=== PATIENT | female | born 1995 | race Caucasian/White ===

== ENCOUNTER 2020-10-29 16:55 | Emergency (ER) | payer BC, MEDICAID, SELFPAY ==
[2020-10-29 17:01] VITALS: BP 114/77; PULSE 75; RESP 16; TEMP 36.3; O2SAT 99
--- NOTE | 2020-10-29 17:25 | W.ED.GENAD ---
Discharge Plan Disposition Patient Disposition: HOME Condition: Stable Discharge Details Clinical Impression: UTI (urinary tract infection) during Primary Care Provider: Unknown,Unknown ED Provider: Aubrey Kruger Home Meds and New Rx's Prescriptions: New cephalexin 500 mg capsule 500 mg PO BID Qty: 10 RF: 0 Discharge Instructions Instructions: Urinary Tract Infection in Women (ED) Additional Instructions: Keflex as directed. Plenty of fluids to avoid dehydration. [id number] Tylenol as directed for discomfort. Please watch for new or worsening symptoms and return to the ER for any concerns. I personally spoke with our OB team, Dr. Giraldo, who is aware of your ER visit and happy to follow you as an outpatient. 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 Took 500 mg of Tylenol with out relief of her symptoms. She is considering transferring her INSTANT POTATO PROCESS[employer] care down to our facility. Clinically she appears well, nontoxic, vital signs are unremarkable, no evidence of fever or hypertension. Abdomen is nontender, consistent with approximately 33 weeks , heart tones 142. No fever, vomiting, CVA tenderness. Will obtain IV access, CBC, CMP, urinalysis, give 1 g p.o. Tylenol and 1 L normal saline. Will reassess and I will also reach out to our INST[employer] P[employer]ESS[employer] team given patient would like to transfer care down to our facility. Laboratory values reveal mild nonspecific leukocytosis of 13.22 which can be completely normal in . Hemoglobin 11.0 hematocrit 32.2 platelet count 240. Potassium 3.4 anion gap 12.5, creatinine 0.6 with GFR greater than 60. Glucose 114. Bilirubin 0.5. AST 10 and 12 alk phosphatase 123, initial urinalysis appears contaminated but does have leukoesterase and white cells, will obtain a second urine sample. Repeat urine sample revealed small leuk esterase, 10-20 white cells, appears to be a better catch. Culture pending Patient appears well, nontoxic. Reports some relief with the Tylenol but headache has not resolved completely. No vomiting while under my care. I personally reached out to our OB team, Dr. Giraldo, who is aware of the patient's ER visit, I will initiate Keflex therapy, and she will be happy to follow her as an outpatient in the next couple of days. I will place her on the OB list as well to expedite outpatient care. Repeat urinalysis, my conversation with Dr. Giraldo, and disposition I will discuss with patient and significant other. Will give initial dose of Keflex here in the ER. Patient and significant other have no additional questions or concerns. Standard discharge and return precautions given This documentation was generated using Diveboardation system, please disregard any oddities of phrase or misspellings. Medical Records Medical records narrative: No records to review Lab Data Lab results reviewed: Yes I reviewed the patient's lab results. Labs: 10/29/20 18:35 Urine - Reflex from Ua Urine Culture - Pending Laboratory Tests Range/Units 10/29/20 10/29/20 10/29/20 17:30 17:47 17:47 WBC (4.4-10.8) 10^3/uL 13.22 H RBC (3.93-5.22) 10^6/uL 3.77 L Hgb (11.2-15.7) g/dL 11.0 L Hct (36.0-46.0) % 32.2 L MCV (80-95) fL 85.4 MCH (27.0-33.0) pg 29.2 MCHC (32.0-36.0) % 34.2 RDW (11.7-14.6) % 12.5 Plt Count (130-400) 10^3/uL 240 MPV (8.0-11.0) fL 10.1 Immature Gran % 0.7 Neutrophils % 79.5 Lymphocytes % 13.5 Monocytes % 5.0 Eosinophils % 1.1 Basophils % 0.2 Nucleated RBC % % 0 Absolute Neutrophils (1.2-6.7) 10^3/uL 10.51 H Absolute Lymphocytes (1.2-3.4) 10^3/uL 1.78 Absolute Monocytes (0.1-0.8) 10^3/uL 0.66 Absolute Eosinophils (0.0-0.7) 10^3/uL 0.15 Absolute Basophils (0.0-0.2) 10^3/uL 0.03 Sodium (136-145) mmol/L 140 Potassium (3.5-5.1) mmol/L 3.4 L Chloride (98-107) mmol/L 105 Carbon Dioxide (21.0-32.0) mmol/L 22.5 Anion Gap (3-11) mmol/L 12.5 H BUN (7-18) mg/dL 4 L Creatinine (0.55-1.02) mg/dL 0.6 Estimated GFR/1.73 m2 (mL/min/1.73m2) >= 60.00 Glucose (74-106) mg/dL 114 H Calcium (8.5-10.1) mg/dL 8.7 Total Bilirubin (0.2-1.0) mg/dL 0.5 AST (15-37) U/L 10 L ALT (14-59) U/L 12 L Alkaline Phosphatase (46-116) U/L 123 H Total Protein (6.4-8.2) g/dL 7.0 Albumin (3.4-5.0) g/dL 3.0 L Urine Color (Yellow) Yellow Urine Clarity (Clear) Sl Cloudy Urine pH (5-8) 7.0 Ur Specific [place] (1.005-1.025) 1.020 Urine Protein (Negative) mg/dL Negative Urine Ketones (Negative) mg/dL Negative Urine Blood (Negative) Negative Urine Nitrite (Negative) Negative Urine Bilirubin (Negative) Negative Urine Urobilinogen (Up TO 0.2) EU/dL 0.2 Ur Leukocyte Esterase (Negative) Small H Urine RBC (0-2) HPF Negative Urine WBC (0-5) HPF 10-20 H Ur Epithelial Cells (Negative) HPF Many Urine Crystals (Negative) HPF Negative Urine Bacteria (Negative) HPF Many Urine Casts (Negative) LPF 20-50 Fine Granular Urine Mucus (Negative) Negative Urine Other (Negative) Many Renal Ur Culture Indicated? No/Sq. Contamination Urine Glucose (Negative) mg/dL Negative Range/Units 10/29/20 18:35 WBC (4.4-10.8) 10^3/uL RBC (3.93-5.22) 10^6/uL Hgb (11.2-15.7) g/dL Hct (36.0-46.0) % MCV (80-95) fL MCH (27.0-33.0) pg MCHC (32.0-36.0) % RDW (11.7-14.6) % Plt Count (130-400) 10^3/uL MPV (8.0-11.0) fL Immature Gran % Neutrophils % Lymphocytes % Monocytes % Eosinophils % Basophils % Nucleated RBC % % Absolute Neutrophils (1.2-6.7) 10^3/uL Absolute Lymphocytes (1.2-3.4) 10^3/uL Absolute Monocytes (0.1-0.8) 10^3/uL Absolute Eosinophils (0.0-0.7) 10^3/uL Absolute Basophils (0.0-0.2) 10^3/uL Sodium (136-145) mmol/L Potassium (3.5-5.1) mmol/L Chloride (98-107) mmol/L Carbon Dioxide (21.0-32.0) mmol/L Anion Gap (3-11) mmol/L BUN (7-18) mg/dL Creatinine (0.55-1.02) mg/dL Estimated GFR/1.73 m2 (mL/min/1.73m2) Glucose (74-106) mg/dL Calcium (8.5-10.1) mg/dL Total Bilirubin (0.2-1.0) mg/dL AST (15-37) U/L ALT (14-59) U/L Alkaline Phosphatase (46-116) U/L Total Protein (6.4-8.2) g/dL Albumin (3.4-5.0) g/dL Urine Color (Yellow) Yellow Urine Clarity (Clear) Sl Cloudy Urine pH (5-8) 7.0 Ur Specific [place] (1.005-1.025) 1.020 Urine Protein (Negative) mg/dL Negative Urine Ketones (Negative) mg/dL Negative Urine Blood (Negative) Negative Urine Nitrite (Negative) Negative Urine Bilirubin (Negative) Negative Urine Urobilinogen (Up TO 0.2) EU/dL 0.2 Ur Leukocyte Esterase (Negative) Small H Urine RBC (0-2) HPF 0-2 Urine WBC (0-5) HPF 10-20 H Ur Epithelial Cells (Negative) HPF Few Urine Crystals (Negative) HPF Negative Urine Bacteria (Negative) HPF Many Urine Casts (Negative) LPF 10-20 Fine Granular Urine Mucus (Negative) Negative Urine Other (Negative) Few Renal Ur Culture Indicated? Yes Urine Glucose (Negative) mg/dL Negative HPI General Mode of arrival: ambulatory. Date/Time Provider Initiated Documentation: 10/29/20 16:55. Limitations to Documentation: no limitations. Information obtained by: patient and family. HPI Narrative: This is a 25-year-old female, denies significant past medical history, G1, P0, approximately 33 weeks, presenting for evaluation of dental moderate global headache, mild nausea, that began 3 days ago. Patient has taken 500 mg of Tylenol with little relief of her symptoms. She is able to take fluids without difficulty, has decreased appetite, but forcing herself to eat cereal. Patient states that she is followed at [facility] but her provider is on vacation, she contacted their office, did not get a call back from the provider hydro station operator, is debating changing her [employer] care to our facility, contact [facility] who recommended coming to the ER for further evaluation. Patient states that she has had some abdominal cramping throughout her but this cramping is diffuse, worse across the upper aspect, and has what she describes as a stretching sensation from her umbilicus to her suprapubic region. She did have an outpatient evaluation last week which was normal, scheduled for an outpatient ultrasound tomorrow at [facility]. Patient is vaccinated against Covid. She denies recent travel or sick contacts. She states that she has a history of migraines but that this does not feel exactly the same, did come on gradually, and is frustrated because there are no other medications that she can safely take. She denies visual changes, neck pain, chest pain, shortness of breath, vomiting, dysuria, hematuria, diarrhea, skin rash, fluid retention in her extremity lower extremities. She does admit to loose stools over the past couple of weeks but not watery. She denies any fever. She states that she has had a scant vaginal discharge during her entire which is unchanged today. Denies additional discharge or bleeding. Related Data Home Medications Medication Instructions Recorded Confirmed cephalexin 500 mg PO BID #10 cap 10/29/20 Previous Rx's Medication Instructions Recorded cephalexin 500 mg PO BID #10 cap 10/29/20 Allergies Allergy/AdvReac Type Severity Reaction Status Date / Time No Known Allergies Allergy Unverified 10/29/20 17:06 General Stated Complaint: GenMedical WOJCIECH: 3 Review of Systems Constitutional Constitutional: Denies fatigue, Denies fever(s) and Reports headache(s) Eyes Eyes: Denies change in vision ENT Ears, Nose, Mouth, and Throat: Reports otalgia, Reports headache(s) and Denies neck pain Cardiovascular Cardiovascular: Denies chest pain and Denies dyspnea Respiratory Respiratory: Denies cough and Denies dyspnea Gastrointestinal Gastrointestinal: Reports abdominal pain, Reports cramping, Reports loose stools, Reports nausea and Denies vomiting Genitourinary Genitourinary: Denies abnormal vaginal bleeding, Denies hematuria, Denies dysuria and Reports vaginal discharge Musculoskeletal Musculoskeletal: Denies back pain and Denies neck pain Integumentary/Breasts Skin/Breast: Denies rash Neurologic Neurologic: Reports headache(s) Endocrine Endocrine: Denies fatigue [facility] Social History Smoking/Tobacco Use Status: Former Tobacco Use Smoking risk assessment performed?: Yes Alcohol Intake: never Drug use: Never Substance use type: does not use Do you feel safe at home: Yes Do you feel safe in your relationship?: Yes Exam Const General: cooperative, healthy appearing, comfortable and no acute distress Orientation: alert, awake and oriented x3 HENMT Head: normal to inspection, normocephalic and atraumatic Ears: external ears normal, TM's normal bilaterally and EAC's normal General nose exam: external nose normal Face and sinus: normal facial exam Mouth: moist mucous membranes Throat: posterior oropharynx normal Eyes General: appearance normal, both eyes and all related structures Conjunctivae: conjunctivae normal Neck Neck: normal visual inspection, full ROM, no meningeal signs, trachea midline, supple and nontender Resp Effort & Inspection: normal respiratory effort and able to speak in complete sentences Auscultation: clear to auscultation bilaterally Cardio Rate: regular rate Rhythm: regular rhythm GI Palpation: soft and nontender Auscultation: normal bowel sounds Other: Abdominal examination consistent with approximately 33 weeks Back/Spine/Pelvis Back: no CVA tenderness and No back tenderness Skin General skin exam: no rashes or lesions noted Neuro General: patient alert, patient awake, moves all extremities and no focal motor deficits Cognition: normal cognition Speech: speech normal Gait: normal gait Motor: muscle tone normal throughout Sensory Exam: no sensory deficits noted Extrem General: normal to inspection, full ROM, capillary refill normal, no pedal edema and no calf tenderness Psych Appearance: grossly normal Mental Status: mental status grossly normal Course Vital Signs Vital signs: Vital Signs Temperature 36.3 C L 10/29/20 17:01 Pulse 75 10/29/20 17:01 Respiratory Rate 16 10/29/20 17:01 Blood Pressure 114/77 10/29/20 17:01 Pulse Oximetry 99 10/29/20 17:01 Temperature 36.3 C L 10/29/20 17:01 Temperature Source Temporal Artery Scan 10/29/20 17:01 Pulse 75 10/29/20 17:01 Respiratory Rate 16 10/29/20 17:01 Respiratory Effort Non-Labored 10/29/20 17:05 Blood Pressure 114/77 10/29/20 17:01 Blood Pressure Position Sitting 10/29/20 17:01 Pulse Oximetry 99 10/29/20 17:01 Oxygen Delivery Method Room Air 10/29/20 17:01 Oxygen Flow Rate 0 10/29/20 17:01 Pain Level 6 10/29/20 17:01
[2020-10-29 17:34] LABS: Bilirubin Negative (Negative); Blood Negative (Negative); Clarity Sl Cloudy (Clear); Glucose Negative (Negative); Ketones Negative (Negative); Leukocyte Esterase Small (Negative); Nitrite Negative (Negative); Urobilinogen 0.2 EU/dL (Up TO 0.2)
[2020-10-29] MEDS: Normal Saline 1,000 ML 1000 ML IV (17:45)
[2020-10-29 17:53] LABS: Abs Immature Grans 0.09 10^3/uL (0.0-0.06); Absolute Basophil Count 0.03 10^3/uL (0.0-0.2); Absolute Eosinophil Count 0.15 10^3/uL (0.0-0.7); Absolute Lymphocyte Count 1.78 10^3/uL (1.2-3.4); Absolute Monocyte Count 0.66 10^3/uL (0.1-0.8); Absolute Neutrophil Count 10.51 10^3/uL (1.2-6.7); Basophils % 0.2; Eosinophils % 1.1; HCT 32.2 % (36.0-46.0); Immature Grans % 0.7; Lymphocytes % 13.5; MCH 29.2 pg (27.0-33.0); MCHC 34.2 % (32.0-36.0); MCV 85.4 fL (80-95); MPV 10.1 fL (8.0-11.0); Neutrophils % 79.5; Nucleated RBC 0 %; Platelet Count 240 10^3/uL (130-400); RBC 3.77 10^6/uL (3.93-5.22); RDW 12.5 % (11.7-14.6); RDW-SD 38.5 fL; WBC 13.22 10^3/uL (4.4-10.8)
[2020-10-29 17:54] LABS: Bacteria Many HPF (Negative); Crystals Negative HPF (Negative); Epithelial Cells Many HPF (Negative); Mucus Negative (Negative); RBC Negative HPF (0-2)
[2020-10-29] MEDS: Acetaminophen 500 MG TAB 1000 MG PO (17:54)
[2020-10-29 17:55] LABS: C & S Indicated? No/Sq. Contamination
[2020-10-29 18:12] LABS: ALT 12 U/L (14-59); AST 10 U/L (15-37); Alkaline Phosphatase 123 U/L (46-116); Anion Gap 12.5 mmol/L (3-11); BUN 4 mg/dL (7-18); Bilirubin, Total 0.5 mg/dL (0.2-1.0); CO2 22.5 mmol/L (21.0-32.0); CREATININE 0.6 mg/dL (0.55-1.02); Calcium 8.7 mg/dL (8.5-10.1); Chloride 105 mmol/L (98-107); Glucose 114 mg/dL (74-106); Potassium 3.4 mmol/L (3.5-5.1); Sodium 140 mmol/L (136-145)
[2020-10-29 18:53] LABS: Bilirubin Negative (Negative); Blood Negative (Negative); Clarity Sl Cloudy (Clear); Glucose Negative (Negative); Ketones Negative (Negative); Leukocyte Esterase Small (Negative); Nitrite Negative (Negative); Urobilinogen 0.2 EU/dL (Up TO 0.2)
[2020-10-29 19:03] LABS: Epithelial Cells Few HPF (Negative); RBC 0-2 HPF (0-2)
[2020-10-29 19:04] LABS: Bacteria Many HPF (Negative); C & S Indicated? Yes; Crystals Negative HPF (Negative); Mucus Negative (Negative); Other Cells Few Renal (Negative)
[2020-10-29] MEDS: Cephalexin 500 MG CAP PO (19:46)
[2020-10-29 19:50] VITALS: BP 109/61; PULSE 65; RESP 16; TEMP 37.1; O2SAT 99
--- NOTE | 2020-10-29 20:25 | NUR.NOTE ---
referral faxed to [facility] to establish chief strategy officer care and uti. Dr Giraldo aware of patient.Nursing Note:
== END 2020-10-29 19:52 | disposition home or self-care (01) ==
PROVIDERS: Emergency Provider Physician Assistant
DX: O23.43 Unspecified infection of urinary tract in pregnancy, third trimester (principal); B96.89 Other specified bacterial agents as the cause of diseases classified elsewhere; Z3A.32 32 weeks gestation of pregnancy; R51.9 Headache, unspecified
CPT/HCPCS: 36415; 80053; 96360; 96361; 99283; 81003; 81015; 85025; 87086

== ENCOUNTER 2020-11-17 15:44 | Outpatient (REF) | payer BC, MEDICAID, SELFPAY ==
[2020-11-18 22:18] LABS: Campylobacter PCR Negative (Negative); Salmonella PCR Negative (Negative); Shiga Toxin PCR Negative (Negative); Shigella/Enteroinvasive Ecoli Negative (Negative)
== END 2020-11-17 15:45 | disposition home or self-care (01) ==
LOC: LBN 15:44
PROVIDERS: Visit Provider Advanced Practice Midwife
DX: R19.7 Diarrhea, unspecified (principal)
CPT/HCPCS: 87329; 87505; 87177

== ENCOUNTER 2020-11-22 03:42 | Outpatient (CLI) | payer BC, MEDICAID, SELFPAY ==
[2020-11-22 15:19] LABS: HCT 31.3 % (36.0-46.0); HGB 10.3 g/dL (11.2-15.7); MCH 27.6 pg (27.0-33.0); MCHC 32.9 % (32.0-36.0); MCV 83.9 fL (80-95); MPV 10.6 fL (8.0-11.0); Platelet Count 220 10^3/uL (130-400); RBC 3.73 10^6/uL (3.93-5.22); RDW 12.8 % (11.7-14.6); RDW-SD 38.5 fL
[2020-11-22 18:16] LABS: *AMPHETAMINES SCREEN URINE Negative (Negative); *BARBITURATES SCREEN URINE Negative (Negative); *BENZODIAZEPINES SCREEN URINE Negative (Negative); Cannabinoids THC Negative (Negative); Cocaine Screen,Urine Negative (Negative); METHADONE URINE SCREEN Negative (Negative); OPIATES URINE SCREEN Negative (Negative)
[2020-11-22 18:17] LABS: Tricyclic Antidepressants Negative (Negative)
[2020-11-23 10:59] LABS: Varicella IgG Antibody Negative (See Note)
[2020-11-29 13:39] LABS: Buprenorphine Negative ng/mL (Cutoff: 5.0); Norbuprenorphine Negative ng/mL (Cutoff: 2.5)
== END 2020-11-22 03:43 | disposition home or self-care (01) ==
LOC: LBO 03:42
PROVIDERS: Advanced Practice Midwife; Visit Provider Advanced Practice Midwife
DX: Z34.93 Encounter for supervision of normal pregnancy, unspecified, third trimester (principal); Z36.85 Encounter for antenatal screening for Streptococcus B; Z01.84 Encounter for antibody response examination; Z11.59 Encounter for screening for other viral diseases; Z3A.36 36 weeks gestation of pregnancy
CPT/HCPCS: 36415; 80307; 85027; 86787; 86850; 86900; 86901; 87081

== ENCOUNTER 2020-12-15 04:32 | Inpatient (IN) | payer BC, MEDICAID, SELFPAY ==
[2020-12-15] VITALS (61 sets, daily range): BP systolic 90–134; BP diastolic 48–82; PULSE 54–125; RESP 16–20; TEMP 36.5–37.2; O2SAT 79–100; BMI 35.2
--- NOTE | 2020-12-15 04:47 | W.PM.OBHPL1 ---
Date of service: 12/15/20 Time of Service: 04:47 Assessment and Plan Assessment and plan (1) PROM with onset of labor within 24 hours of rupture: Status: Acute Assessment and plan: A: 25 yo G1 @ 39+6 wks, benign AP course, Transferred into midwifery service @ 33 wks SROM clear confirmed, early labor GBS Neg, Varicella non-immune low risk for SD or PPH planning epidural anesthesia P: Admit to BC, T&S, CBC, COVID swab Attended by FOB and her mother Epidural upon request, pitocin augmentation as needed Anticipate Varicella vaccine Qualifiers: PROM gestational age: full term Qualified Code(s): O42.02 - Full-term premature rupture of membranes, onset of labor within 24 hours of rupture (2) 40 weeks gestation of : Status: Acute OB-HPI Labor/Delivery History of Present Illness Reason for Visit: PROM AT TERM Chief Complaint: Uterine Contractions; Suspected Rupture of Membranes , Associated Signs and Symptoms of Suspected ROM: large and repeated gushes of fluids since 0140 this morning, cramping began shortly thereafter. LAVERN Calculator Estimated Delivery Date Method Current WG Current Estimate 12/16/20 Manual 39w 6d from outside records History of Present Expected Delivery Route/Plan - CNM FOB/boyfriend - Chay House (his first child) BB yes to circ Desires epidural in labor Lo's Mom Luanne will be 2nd support in labor and she has been vaccinated. Varicella Non-Immune, offer vaccine GBS negative Specific Issues/Plan 1. Transfer into practice at 33+3 wks from [facility] 2. Anatomy never completed after 3 US due to baby's position, unable to see aortic arch and outflow tract, patient does not want to repeat 3. 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 No Varicella done at last providers office, patient declines doing this testing as she is certain she had chicken pox despite counseling 4a. Varicella Non-Immune by 36 wk blood draw. Advise pt at next visit, offer vaccination 5. Has had COVID vaccine, FOB and her Mother will be support and have had COVID vaccine as well. 6. Diarrhea - stool for ova and parasites ordered, immodium recommended. EDWIGE diet, temporarily discontinue vitamins. 6a. O and P test cancelled due to specimen not being fresh. Neg salmonella camphylobactor and shigella 6b. Symptoms resolved. Assessment: History Reviewed & Current Review of Systems All systems reviewed & are unremarkable except as noted in HPI and below Constitutional Constitutional: Reports system reviewed and no additional complaints, except as documented Cardiovascular Cardiovascular: Reports as per HPI Respiratory Respiratory: Reports as per HPI Gastrointestinal Gastrointestinal: Reports system reviewed and no additional complaints, except as documented Genitourinary Genitourinary: Reports system reviewed and no additional complaints, except as documented and Reports as per HPI Musculoskeletal Musculoskeletal: Reports back pain Integumentary/Breasts Skin/Breast: Reports system reviewed and no additional complaints, except as documented Neurologic Neurologic: Reports system reviewed and no additional complaints, except as documented Psychiatric Psychiatric: Reports system reviewed and no additional complaints, except as documented [facility] Medical History (Updated 12/15/20 @ 04:57 by Radha Quintanilla) 38 weeks gestation of Surgical History H/O wisdom tooth extraction Social History Smoking/Tobacco Use Status: Former Tobacco Use Smoking risk assessment performed?: Yes Alcohol Intake: never Drug use: Never Substance use type: does not use Do you feel safe at home: Yes Do you feel safe in your relationship?: Yes History History 1 Para 0 Hx # Term Pregnancies 0 Multiple births 0 Hx # Pregnancies 0 Ectopic pregnancies 0 AB induced 0 Hx Number of Living Children 0 AB spontaneous 0 Meds Allergies and Home Medications Allergies Allergy/AdvReac Type Severity Reaction Status Date / Time No Known Allergies Allergy Unverified 12/15/20 04:34 Home Medications Medication Instructions Recorded Confirmed Type doxylamine succinate 25 mg tablet 25 mg PO QHS PRN 10/31/20 12/15/20 History vits no.126-ferrous fum 1 tab PO DAILY tab 10/31/20 12/15/20 History 28 mg iron-folic acid 800 mcg tablet ferrous sulfate 325 mg (65 mg 325 mg PO DAILY 11/29/20 12/15/20 History iron) tablet ranitidine HCl 150 mg tablet 150 mg PO DAILY tab 12/06/20 12/15/20 History Exam Physical Exam Vital signs: BP-126/75, P-63 Vital Signs Reviewed: Yes Constitutional Constitutional: mild distress Detailed Labor and Delivery Exam Dilation: 1.5 Effacement (%): 90 station: -2 Position: LOP Cervix position: posterior Consistency: medium VILLA Score(Cervical Ripeness Score): 6 Amniotic Membrane Status: Ruptured Rupture Method: Spontaneous Amniotic Fluid: Clear Pooling: Positive Nitrazine: Positive Ferning: Present Contraction Frequency(min): q3 min Contraction Duration(sec): 60 Contraction Intensity: Mild Fetus A Heart Rate Baseline: 120 Monitor Accelerations: 15 X 15 Monitor Decelerations: None Variability: Moderate (6-25 BPM) Presentation: Cephalic Categories: Category I Est. Weight: 7 lb 11.459 oz Est. Weight: 3500 gms Date of Membrane Rupture: 12/15/20 Time of Membrane Rupture: 01:40 HEENT Exam HEENT Exam: Normal Neck Exam Neck Exam: Normal Chest/Brest/Axilla Exam Chest Exam: Normal Breast Exam Breast Exam: Not Done Respiratory Exam Respiratory Exam: Normal Cardiovascular Exam Cardiovascular Exam: Normal Abdominal Exam Abdominal Exam: Normal (gravid, soft between contractions) Rectal Exam Rectal Exam: Not Done Exam Exam: Normal Extremities Exam Extremities Exam: Normal Back/Spine/Pelvis Exam Back Exam: Normal Pelvis Adequate: Yes Skin Exam Skin Exam: Normal Neurological Exam Neurological Exam: Normal Psychiatric Exam Psychiatric Exam: Normal Results Results Group Beta Strep: Negative Blood Type: O+ Rubella Status: Immune Varicella Immunity: Nonimmune Risk Assessment Risk for Shoulder Dystocia Historical/Initial OB: NEGATIVE FOR: Pelvic Abnormality, Pre- BMI>30, Previous Shoulder Dystocia or Previous Macrosomia Increased Risk?: No Delivery Plan @ 36wks: spont labor, Risk for Pre-Eclampsia Daily Dose ASA Indicated: No Yes, if one or more: NEGATIVE FOR: Hx Pre-E/Gest HTN, Chronic HTN, Multiple Gestation, Pre-gestational DM, Renal Disease, Systemic Lupus or APA Syndrome Yes, if 2 or more: POSITIVE FOR: Nulliparity; NEGATIVE FOR: Age>= 35 yrs, >10yr btwn pregnancies, BMI>30, ethinicty, Mother/Sister w/ Pre-E or Previous IUGR Risk for Post- Hemorrhage Initial: NEGATIVE FOR: Multiple Gestation, Previous PPH, Known Clotting Deficiency, Grand Multiparity or Anticoagulation At Risk?: No Counseled re: Active Management: Yes Risks Reviewed Risks Reviewed Upon Admission: Yes
[2020-12-15 05:11] LABS: Source Nasal/Nares
[2020-12-15 05:35] LABS: HCT 35.6 % (36.0-46.0); HGB 11.7 g/dL (11.2-15.7); MCH 27.7 pg (27.0-33.0); MCHC 32.9 % (32.0-36.0); MCV 84.4 fL (80-95); MPV 10.9 fL (8.0-11.0); Platelet Count 244 10^3/uL (130-400); RBC 4.22 10^6/uL (3.93-5.22); RDW 14.8 % (11.7-14.6); RDW-SD 44.8 fL; WBC 14.57 10^3/uL (4.4-10.8)
[2020-12-15] MEDS: Acetaminophen 500 MG TAB 1000 MG PO (05:45)
[2020-12-15 06:01] LABS: COVID-19 PCR Negative (Negative)
--- NOTE | 2020-12-15 06:22 | NUR.NOTE ---
Nursing Note: returned to room 303 from tub room. Nitrous explained.
[2020-12-15] MEDS: Normal Saline Flush 10 ML SYR IVP (06:53)
[2020-12-15] MEDS: Lactated Ringers 500 ML IV (07:00)
--- NOTE | 2020-12-15 07:02 | W.PM.OBNL1 ---
Date of service: 12/15/20 Time of Service: 07:02 Informed Consent Informed Consent: Regional Anesthesia Pelvic Exam Dilation: 2.5 Effacement (%): 100 station: -1 Vaginal Exam Presentation: Cephalic Contractions Monitor Mode: External Contraction Frequency(min): q2-3 Intensity: Mild/Moderate Fetus A Monitor: External (US) Heart Rate Baseline: 125 Variability: Moderate (6-25 BPM) Categories: Category I Accelerations: 15 X 15 Decelerations: None Amniotic Membrane Status: Ruptured (since 139) Rupture Method: Spontaneous Amniotic Fluid: Clear Assessment and Plan Assessment and plan (1) PROM with onset of labor within 24 hours of rupture: Status: Acute Assessment and plan: A: Early active labor, primipara, Desires epidural anesthesia now P: Pre-anesthesia orders entered [employer] paged IV access initiated and bolus begun Qualifiers: PROM gestational age: full term Qualified Code(s): O42.02 - Full-term premature rupture of membranes, onset of labor within 24 hours of rupture Objective Abnormal lab results 12/15/20 Range/Units 05:27 WBC 14.57 H (4.4-10.8) 10^3/uL Hct 35.6 L (36.0-46.0) % RDW 14.8 H (11.7-14.6) % Temp Pulse Resp BP Pulse Ox 98.4 F 63 16 126/75 100 12/15/20 04:18 12/15/20 04:18 12/15/20 04:18 12/15/20 04:18 12/15/20 04:18 Laboratory Results WBC 14.57 10^3/uL (4.4-10.8) H 12/15/20 05:27 RBC 4.22 10^6/uL (3.93-5.22) 12/15/20 05:27 Hgb 11.7 g/dL (11.2-15.7) 12/15/20 05:27 Hct 35.6 % (36.0-46.0) L 12/15/20 05:27 MCV 84.4 fL (80-95) 12/15/20 05:27 MCH 27.7 pg (27.0-33.0) 12/15/20 05:27 MCHC 32.9 % (32.0-36.0) 12/15/20 05:27 RDW 14.8 % (11.7-14.6) H 12/15/20 05:27 Plt Count 244 10^3/uL (130-400) 12/15/20 05:27 MPV 10.9 fL (8.0-11.0) 12/15/20 05:27 COVID-19 Source Nasal/Nares 12/15/20 05:10 SARS-CoV-2 (PCR) Negative (Negative) 12/15/20 05:10 Patient ABO/Rh O Positive 12/15/20 05:27 Antibody Screen NEGATIVE 12/15/20 05:27 Vital Signs Reviewed: Yes Objective Narrative Objective Narrative: Pt vocalizing with contractions, appears more uncomfortable Normotensive, afebrile Cervical change to 2-3 cm with descent to -1/-2 Subjective Interval history since last seen: Has ambulated, soaked in the tub, tried nitrous but didn't like it, now requesting regional anesthesia. Contractions are more intense, pain is no longer primarily in her back, entire pelvic region has become painful with contractions, also pt reports waves of nausea.
--- NOTE | 2020-12-15 07:26 | W.ANESPRE ---
General Info Date of Service Date Performed: 12/15/20 Height: 5 ft 1.81 in Weight: 86.75 kg Body Mass Index (BMI): 35.2 Meds Allergies and Home Medications Allergies Allergy/AdvReac Type Severity Reaction Status Date / Time No Known Allergies Allergy Unverified 12/15/20 04:34 Home Medication Medication Instructions Recorded doxylamine succinate 25 mg tablet 25 mg PO QHS PRN 10/31/20 vits no.126-ferrous fum 1 tab PO DAILY tab 10/31/20 28 mg iron-folic acid 800 mcg tablet ferrous sulfate 325 mg (65 mg 325 mg PO DAILY 11/29/20 iron) tablet ranitidine HCl 150 mg tablet 150 mg PO DAILY tab 12/06/20 Current Visit Medications: Current Medications Generic Name Dose Route Start Last Admin Trade Name Freq PRN Reason Stop Dose Admin Fentanyl/Ropivacaine 200 ml 12/15/20 07:00 Fentanyl/Ropivacaine 2 Mcg/Ml And 0.1% 200 Ml [place] Cassette EP DIRECTED ROSSANA Sodium Chloride 500 mls @ 0 mls/hr 12/15/20 04:32 Saline 500ml Bag IV PRN PRN As Directed Ringer's Solution 500 mls @ 500 mls/hr 12/15/20 07:00 12/15/20 07:00 IV 12/15/20 07:59 500 mls/hr BOLUS ONE Administration IV Miscellaneous Supplies 1 each 12/15/20 04:45 Iv Access IV DIRECTED ROSSANA Sodium Chloride 0 ml 12/15/20 04:32 12/15/20 06:53 Normal Saline Flush 10 Ml Syr IVP 10 ml PRN PRN Administration PFSH Active Problems Active Problems: Problem Status Onset Code 40 weeks gestation of Z3A.40 PROM with onset of labor within 24 hours of rupture O42.00 Asymptomatic microscopic hematuria R31.21 Susceptible to Varicella (non-immune), currently in third trimester O09.893, Z28.3 Anemia affecting first O99.019 Diarrhea R19.7 Z34.90 UTI (urinary tract infection) during O23.40 Medical History Medical History (Updated 12/15/20 @ 04:57 by Radha Quintanilla) 38 weeks gestation of Surgical History Surgical History H/O wisdom tooth extraction Tobacco Smoking/Tobacco Use Status: Former Tobacco Use Alcohol Alcohol Intake: never Substance Use Substance use: Never Substance use type: does not use Prental History History 1 Para 0 Hx # Term Pregnancies 0 Multiple births 0 Hx # Pregnancies 0 Ectopic pregnancies 0 AB induced 0 Hx Number of Living Children 0 AB spontaneous 0 Vital Signs and Lab Results Vital Signs Most Recent Vital Signs in EMR: Most Recent Vital Signs Temp Pulse Resp BP Pulse Ox 36.9 C 63 16 126/75 100 12/15/20 04:18 12/15/20 04:18 12/15/20 04:18 12/15/20 04:18 12/15/20 04:18 Lab Results Result Diagrams: 12/15/20 05:27 Blood Type / Crossmatch: Patient ABO/Rh O Positive 12/15/20 05:27 12/15/20 Antibody Screen NEGATIVE 12/15/20 05:27 12/15/20 Complete Blood Count: White Blood Count 14.57 10^3/uL (4.4-10.8) H 12/15/20 05:27 12/15/20 Red Blood Count 4.22 10^6/uL (3.93-5.22) 12/15/20 05:27 12/15/20 Hemoglobin 11.7 g/dL (11.2-15.7) 12/15/20 05:27 12/15/20 Hematocrit 35.6 % (36.0-46.0) L 12/15/20 05:27 12/15/20 Platelet Count 244 10^3/uL (130-400) 12/15/20 05:27 12/15/20 Complete Metabolic Panel: No Data to Display Liver Function Panel: No Data to Display Coagulation Panel: No Data to Display Cardiac Panel: No Data to Display Arterial Blood Gas: No Data to Display Venous Blood Gas: No Data to Display Pancreas Panel: No Data to Display Thyroid Panel: No Data to Display Infectious Disease: Coronavirus (COVID-19)(PCR) Negative (Negative) 12/15/20 05:10 12/15/20 Coronavirus 2019 Source Nasal/Nares 12/15/20 05:10 12/15/20 Blood Cultures: No Data to Display Toxicology Panel: Urine Amphetamines Screen Negative (Negative) 11/22/20 16:00 11/22/20 Urine Benzodiazepines Screen Negative (Negative) 11/22/20 16:00 11/22/20 Urine Barbiturates Screen Negative (Negative) 11/22/20 16:00 11/22/20 Urine Cocaine Screen Negative (Negative) 11/22/20 16:00 11/22/20 Urine Methadone Screen Negative (Negative) 11/22/20 16:00 11/22/20 Urine Opiates Screen Negative (Negative) 11/22/20 16:00 11/22/20 Ur Tricyclic Antidepressants Screen Negative (Negative) 11/22/20 16:00 11/22/20 Ur Tetrahydrocannabinol (THC) Scrn Negative (Negative) 11/22/20 16:00 11/22/20 Panel: No Data to Display Anesthesia Assessment and Plan Anesthesia History Personal History: No History of Anesthesia Complications Family History: No Family History of Anesthesia Complications Exercise Tolerance Exercise Tolerance: Metabolic Equivalents>4 Cardiac & Pulmonary Exam Cardiac Exam: Normal S1/S2 Heart Sounds Pulmonary Exam: Clear Bilateral Breath Sounds Airway Exam Known Difficult Airway: No Mallampati Class: 1 Mouth Opening: Normal (> 3cm) Thyromental Distance: Greater than 3 cm Neck Range of Motion: Full ROM Neck Circumference: Normal Teeth Condition: Normal Dentition ASA Classification ASA Score: ASA 2 Emergency Case?: No NPO Status NPO Status: Full Stomach Status Status: Confirmed Anesthesia Plan Resuscitation Status: Full Code Anesthesia Technique: Epidural Anesthesia Airway Planned: Natural Airway Monitors Used: Standard Monitors
[2020-12-15] MEDS: FentaNYL/ROPIvacaine 2 mcg/ml and 0.1% 200 ML CADD Cassette EP (07:50)
--- NOTE | 2020-12-15 08:12 | W.ANESNEU ---
Epidural/Spinal Catheter Date Performed: 12/15/20 Procedure Start: 07:40 Procedure Stop: 07:55 Requesting Provider: Radha Quintanilla Procedure Location: Obstetrics Reason Performed: Labor Epidural Standard Monitors Applied: Blood Pressure, SpO2 and See EMR for corresponding vital signs Patient Position: Sitting Sedation Given (Indicate Dose Given): No Sedation given Patient Mental Status: Awake Sterility: Hand Hygiene, Surgical Cap, Surgical Mask, Sterile Gloves, Sterile Drape/Sheet and Chlorhexidine Procedure Location: L3-L4 Interspace Epidural Needle: Tuohy 18 Gauge Needle Length: 3.5 Inch Needle Approach: Midline Epidural Procedure: Skin Prepped, Sterile Drape Placed, 1% Lidocaine to skin and subcutaneous tissue with 25G needle, Tuohy Needle placed, HARMONY to Saline Used, Epidural Catheter Placed, Negative Heme, Negative CSF Flow and Tuohy Needle Removed Catheter Placed?: Catheter Placed Test Dose (Indicate Dose Given): 3ml 1.5% Lidocaine with 1:200K Epinephrine Given Loss of Resistance Depth (cm): 9 Catheter depth at skin (cm): 16 Dressing: Sorbaview Dressing Placed Epidural Provider Bolus (Indicate Dose Given): Total Ropivacaine 0.1% with Fentanyl 2mcg/ml Given from pump (ml) Dose:: 10mL Additives (Indicate Dose Given ): None Infusion Medication: Medication Infusion Began Medication Infusion: Ropivacaine 0.1% with Fentanyl 2mcg/ml Maintenance Infusion Rate (ml/hour): 10 PCEA Bolus Dose (ml): 5 Block Level: N/A Paresthesia: None Ultrasound: Not Used Number of Attempts (See previous attempts in note section): 1 Procedure Tolerated: No Complications Procedure Outcome: Successful Performed By: Krysta Washburn
[2020-12-15] MEDS: Mylanta Suspension 30 ML CUP PO ×2 (08:54→12:02)
--- NOTE | 2020-12-15 08:56 | W.PM.OBNL1 ---
Date of service: 12/15/20 Time of Service: 08:56 Informed Consent Informed Consent: Augmentation of Labor Contractions Contraction Frequency(min): q5-7 Intensity: Mild/Moderate Fetus A Monitor: External (US) Heart Rate Baseline: 130 Presentation: Cephalic Variability: Moderate (6-25 BPM) Categories: Category I Accelerations: 15 X 15 Decelerations: None Amniotic Membrane Status: Ruptured Assessment and Plan Assessment and plan (1) PROM with onset of labor within 24 hours of rupture: Status: Acute Assessment and plan: A: Effective epidural anesthesia Inadequate contraction pattern P: Pitocin augmentation per protocol Dr. Santamaria consulting Anticipate Qualifiers: PROM gestational age: full term Qualified Code(s): O42.02 - Full-term premature rupture of membranes, onset of labor within 24 hours of rupture Objective Vital Signs Reviewed: Yes Subjective Interval history since last seen: Pt states she is much more comfortable since epidural took effect, resting LLP, drowsy now.
[2020-12-15] MEDS: Ondansetron 4 MG/2 ML VIAL IVP (10:14)
[2020-12-15] MEDS: Lactated Ringers 1,000 ML 125 ML IV (10:16)
[2020-12-15] MEDS: Oxytocin/Normal Saline 30 UNIT/500 ML BAG 2 UNITS IV (10:17)
--- NOTE | 2020-12-15 10:39 | W.PM.OBNL1 ---
Date of service: 12/15/20 Time of Service: 10:39 Informed Consent Informed Consent: Augmentation of Labor Pelvic Exam Dilation: 6 Effacement (%): 100 station: 0 Position: LOT Cervix Position: anterior Consistency: soft Vaginal Exam Presentation: Cephalic Contractions Monitor Mode: External Contraction Frequency(min): q4-7 Intensity: Moderate Fetus A Monitor: External (US) Heart Rate Baseline: 130 Variability: Moderate (6-25 BPM) Categories: Category I Accelerations: 15 X 15 Decelerations: None Amniotic Membrane Status: Ruptured Assessment and Plan Assessment and plan (1) PROM with onset of labor within 24 hours of rupture: Status: Acute Assessment and plan: A: pitocin augmentation, epidural anesthesia category 1 tracing P: Anticipate Qualifiers: PROM gestational age: full term Qualified Code(s): O42.02 - Full-term premature rupture of membranes, onset of labor within 24 hours of rupture Objective Vital Signs Reviewed: Yes Objective Narrative Objective Narrative: Cervical change from 3 to 6 cm since before epidural was placed, Contraction pattern remains irregular, mild to palp Bloody vaginal mucous noted in small amt, bladder palpable Pt assisted to bedside commode and spontaneously voided qs Pitocin augmentation started moments ago and is at 2 mu/min Subjective Interval history since last seen: Epidural somewhat heavier on pt's right side, pt reports pelvic pressure when she has contractions which are infrequent and irregular at this time. Results Abnormal Lab Findings:
[2020-12-15] MEDS: Oxytocin/Normal Saline 30 UNIT/500 ML BAG 167 UNITS IV (13:22)
--- NOTE | 2020-12-15 13:55 | W.OBDELIVERY ---
Date of service: 12/15/20 Time of Service: 13:55 OB Labor/ Delivery Information Baby A Delivery Delivery Method: Spontaneaous Presentation: Cephalic Cephalic Position: Vertex Vertex Position: Left Occipital Anterior Breech Position: N/A Cord Description-Baby A: 3 Vessels, Nuchal Cord (Snug nuchal cord reduced overhead, left nuchal hand) and Reduced Amniotic Fluid: Clear Estimated Blood Loss: 300 Delivery Outcome: Liveborn Transferred: Remains with Mother Note: Category 1 tracing was maintained throughout first stage of labor, Pitocin augmentation at 3 mu/min with improved contraction pattern. At full dilation 2nd stage huddle was completed and excellent maternal efforts resulted in rapid descent to perineum, decel to 90's noted at 1308. Recovery to baseline after 90 seconds with moderate variability but decels to 80-100 recurred over the following 10 minutes as vtx crowned to delivery @ 1321. over intact perineum with maternal position semi-fowlers, snug nuchal cord reduced overhead, left nuchal hand noted, non-vigorous male infant immediately moved to warmer for drying, stim and blowby 02 after cord was clamped then cut by FOB, Apgars of 4 - 7 - 9. Pitocin infusion bolus begun, cord blood collected, Call placenta intact with 3VC, fundus firm below umbilicus, min rubra. Upon inspection, perineum is intact, no vaginal wall lacerations, bilateral superficial labial skidmarks noted, not bleeding, not repaired. Superficial laceration noted on vaginal floor at introitus with slight oozing of blood which was controlled with one stitch of 3.0 Vicryl. At 10 minutes of age, baby was placed in mother's arms for skin to skin with 02 saturation >90%. Peds notified via phone of scores and status. EBL 300 ml, weight 3190 gms. Providers Nurse Market Development Executive: Radha Quintanilla Commercial Loan Underwriter: Krysta Washburn Nurse: Carolyne Sauceda Nurse: Jimenez Griffin Labor/Delivery Information Number of Babies in Womb: 1 Steroids Given: None Reason Steroids Not Administered: N/A Group Beta Strep: Negative Rubella Status: Immune Blood Type: O+ Varicella Immunity: Nonimmune Medication in Delivery: pitocin augment Maternal Complications: None Shoulder Dystocia: No Stages of Labor Onset of Labor Date: 12/15/20 Onset of Labor Time: 01:45 Complete Dilatation Date: 12/15/20 Complete Dilatation Time: 12:53 Labor - Stage 1 Duration: 0 minutes ROM Baby A: 12/15/20 ROM Baby A: 01:40 ROM Total Time- Baby A: [id number] Delivery Date-Baby A: 12/15/20 Infant Delivery Time-Baby A: 13:21 Labor Stage 2 Duration: 28 minutes Placenta Delivery Date-Baby A: 12/15/20 Placenta Delivery Time-Baby A: 13:29 Labor-Stage 3 Duration: 8 minutes Total Length of Labor-Baby A: 11 hours and 36 minutes Placenta Cultured: No Placenta Status: Delivered Baby A Gender: Male Gestational Status: Term (39-41.6 wks) Gestational Age in Weeks/Days: 39 Weeks and 6 Days weight: 7 lb 0.524 oz Weight Comment: 3190 gms Score-1 Minute Interval(Baby A) Heart Rate-1 minute: 100 BPM or Greater Respiratory Effort- 1 minute: No Spontaneous Effort Muscle Tone-1 minute: Limp Reflex Response-1 minute: Minimal Response Color-1 minute: Bluish Hands or Feet Total Score-1 minute: 4 Score-5 Minute Interval(Baby A) Heart Rate- 5 minute: 100 BPM or Greater Respiratory Effort-5 minute: Slow Respiration/Weak Cry Muscle Tone-5 minute: Minimal Flexion/Extension Reflex Response-5 minute: Prompt Response Color-5 minute: Bluish Hands or Feet Total Score- 5 minute: 7 Procedure Procedures: Cord Blood Collection
--- NOTE | 2020-12-15 14:33 | W.ANESPOSTOP ---
Postoperative Evaluation Date, Time and Location Date Performed: 12/15/20 Time Performed: 14:33 Patient Location: Obstetrics Vital Signs Most Recent Imported Vital Signs: Most Recent Vital Signs Temp Pulse Resp BP Pulse Ox 37.0 C 77 20 112/65 100 12/15/20 12:43 12/15/20 14:30 12/15/20 12:43 12/15/20 14:30 12/15/20 13:20 Pain Score Most Recent Pain Score: Most Recent Pain Score Pain Level 4 12/15/20 05:45 Assessment Mental Status: Awake (Alert & Oriented to Patient Baseline) Airway and Respiratory Function: Patent airway with normal (patient baseline) respiratory exam Cardiovascular Function: Hemodynamically Stable Hydration Status: Adequately Hydrated Nausea & Vomiting: No Nausea or Vomiting Pain: Pt. Denies Any Pain Peripheral Nerve Block: Patient did not receive a nerve block Postoperative Comments:: Most Recent pain is 0
[2020-12-15] MEDS: Dibucaine 1% 28 GM TUBE TP (15:47)
[2020-12-15] MEDS: Ibuprofen 600 MG TAB PO (18:40)
[2020-12-15] MEDS: Acetaminophen 325 MG TAB 650 MG PO (18:41)
[2020-12-15] MEDS: Docusate Sodium 100 MG CAP PO (18:42)
[2020-12-16 00:11] VITALS: BP 105/63; PULSE 58; RESP 16; TEMP 36.6; O2SAT 100
[2020-12-16] MEDS: Acetaminophen 325 MG TAB 650 MG PO ×4 (00:41→19:39)
[2020-12-16] MEDS: Docusate Sodium 100 MG CAP PO ×2 (00:44→19:39)
[2020-12-16] MEDS: Ibuprofen 600 MG TAB PO ×4 (00:44→19:38)
[2020-12-16 04:16] VITALS: BP 100/61; PULSE 74; RESP 16; TEMP 36.8; O2SAT 99
[2020-12-16 07:15] LABS: HCT 29.6 % (36.0-46.0); HGB 9.7 g/dL (11.2-15.7); MCH 27.9 pg (27.0-33.0); MCHC 32.8 % (32.0-36.0); MCV 85.1 fL (80-95); MPV 10.9 fL (8.0-11.0); Platelet Count 182 10^3/uL (130-400); RBC 3.48 10^6/uL (3.93-5.22); RDW 14.9 % (11.7-14.6); RDW-SD 45.8 fL; WBC 14.85 10^3/uL (4.4-10.8)
--- NOTE | 2020-12-16 07:20 | OBPPV_ITS ---
Date of service: 12/16/20 Time of Service: 08:29 Assessment and Plan Assessment and plan (1) Term delivered: Status: Acute Assessment and plan: A: PPD#1, nml recovery with nipples sore anemia, hgb 9.7 today, asymptomatic History of depression tx'ed with Wellbutrin prior to P: LC on unit, to provide counseling and support Plans IUD insertion at 6-8 wks Will give Varicella vaccine #1 prior to discharge Pt desires to restart Wellbutrin, 100 mg PO BID to begin Start iron supplement after first BM Pt desires circ prior to discharge Plan for discharge when baby is released by Peds Subjective Subjective Patient comments: Pain well controlled, Tolerating diet and Flatus present [place] baby status: Doing well, Nursing well, Rooming in and Strong Bonding Observed [place] feeding status: Exclusively breast feeding Exam Physical Exam Vital signs: Temp Pulse Resp BP Pulse Ox 98.2 F 74 16 100/61 99 12/16/20 04:16 12/16/20 04:16 12/16/20 04:16 12/16/20 04:16 12/16/20 04:16 Vital Signs Reviewed: Yes Constitutional Constitutional: no acute distress HEENT Exam HEENT Exam: Normal Neck Exam Neck Exam: Normal Breast Exam Bilateral: Breast Exam: Normal and Soft Nipple Exam: Normal and Other (sore) Respiratory Exam Respiratory Exam: Normal Cardiovascular Exam Cardiovascular Exam: Normal Abdominal Exam Abdomen: Other (soft, nontender) Fundal Exam Fundus: Below Umbilicus and Firm Rectal Exam Rectal Exam: Normal Exam Perineum: Intact Extremities Exam Extremity Exam: Normal Back/Spine/Pelvis Exam Back Exam: Normal Skin Exam Skin Exam: Normal Neurological Exam Neurological Exam: Normal Psychiatric Exam Psychiatric Exam: Normal Results Hemoglobin/Hematocrit: Hgb 11.7 g/dL (11.2-15.7) 12/15/20 05:27 Hct 35.6 % (36.0-46.0) L 12/15/20 05:27
[2020-12-16 09:30] VITALS: BP 99/53; PULSE 65; RESP 16; TEMP 36.7
[2020-12-16] MEDS: buPROPion 100 MG TAB PO ×2 (09:35→19:38)
--- NOTE | 2020-12-16 10:20 | W.PM.OBDISCH ---
Date of service: 12/16/20 Time of Service: 10:21 DS: Diagnosis Discharge Diagnosis (1) Term delivered: Status: Acute Discharge Plan Disposition Patient Disposition: HOME Condition: Good Discharge Details Reason For Visit: PROM AT TERM Admit Date/Time: 12/15/20 04:32 Admit Provider: Radha Quintanilla Attending Provider: Radha Quintanilla Hospital Course Hospital Course: with epidural anesthesia, nml PP course, desires discharge on PPD#1 Home Meds and New Rx's Prescriptions: No Action Classic 28 mg iron- 800 mcg tablet 1 tab PO DAILY RF: 0 ferrous sulfate [iron] 325 mg (65 mg iron) tablet 325 mg PO DAILY RF: 0 bupropion HCl 100 mg tablet 100 mg PO BID Qty: 60 RF: 1 Discharge Instructions Additional Instructions: Please call the office tomorrow morning to schedule a 2 and 6 week appointment with your ash conveyor operator. Please state that your 6 week appointment will include a Mirena IUD insertion as well as your second Varicella vaccine and should be an hour long. Call for any concerns or questions. A prescription to begin Wellbutrin 100 mg every 12 hours has been sent to your pharmacy. Stand Alone Forms: BC Instructions, NB Circumcision Care Inst., NB Instructions, Post Vaginal Deliver Activity:: Activity as Tolerated Equipment/Supplies:: No Equipment Needed Diet:: Normal Diet Discharge Orders Discharge Orders: Discharge Order (Routine); Ordered 12/16/20 Ordered By: Radha Quintanilla OB:DS Summary Summary Vaginal Delivery Method: Spontaneaous Episiotomy Description: None Laceration Description: Other Laceration Extension: N/A Contraception Discussed Contraception Discussed: Yes Contraceptive Plan: IUD, Infant Gender-Baby A: Male weight: 7 lb 0.524 oz Status at Discharge Functional status at discharge: independent ambulation Overall status at discharge: patient is progressing back to baseline Mental Status: mental status grossly normal Speech and Movement: speech and movement normal and speech clear Mood: congruent mood Affect: normal affect Exam Physical Exam Vital signs: Temp Pulse Resp BP Pulse Ox 98.1 F 65 16 99/53 L 99 12/16/20 09:30 12/16/20 09:30 12/16/20 09:30 12/16/20 09:30 12/16/20 04:16 Constitutional Constitutional: no acute distress HEENT Exam HEENT Exam: Normal Neck Exam Neck Exam: Normal Breast Exam Bilateral: Breast Exam: Normal and Soft Respiratory Exam Respiratory Exam: Normal Cardiovascular Exam Cardiovascular Exam: Normal Abdominal Exam Abdomen: Other (soft, nontender) Fundal Exam Fundus: Below Umbilicus and Firm Rectal Exam Rectal Exam: Normal Exam Perineum: Intact Extremities Exam Extremity Exam: Normal Back/Spine/Pelvis Exam Back Exam: Normal Skin Exam Skin Exam: Normal Neurological Exam Neurological Exam: Normal Psychiatric Exam Psychiatric Exam: Normal [facility] Medical History (Updated 12/16/20 @ 08:38 by Radha Quintanilla) 38 weeks gestation of 40 weeks gestation of PROM with onset of labor within 24 hours of rupture Susceptible to Varicella (non-immune), currently in third trimester UTI (urinary tract infection) during Surgical History H/O wisdom tooth extraction Social History Smoking/Tobacco Use Status: Former Tobacco Use Smoking risk assessment performed?: Yes Alcohol Intake: never Drug use: Never Substance use type: does not use Do you feel safe at home: Yes Do you feel safe in your relationship?: Yes History History 1 Para 0 Hx # Term Pregnancies 0 Multiple births 0 Hx # Pregnancies 0 Ectopic pregnancies 0 AB induced 0 Hx Number of Living Children 0 AB spontaneous 0 DS: Data Vitals/I&O Vitals and I&O: Vital Signs Temperature 98.1 F 12/16/20 09:30 Pulse 65 12/16/20 09:30 Pulse Rhythm Regular 12/15/20 20:30 Respiratory Rate 16 12/16/20 09:30 Respiratory Depth Normal 12/15/20 04:50 Blood Pressure 99/53 L 12/16/20 09:30 Blood Pressure Mean 68 12/16/20 09:30 Pulse Oximetry 99 12/16/20 04:16 Pain Level 8 12/16/20 08:32 Comment 12/15/20 08:26 Intake & Output 12/15/20 12/15/20 12/16/20 11:59 23:59 11:59 Intake Total 574.7 / 2612.513 4311.133 / 1781.833 Output Total 600 / 1185 585 / 1185 Balance -25.3 / 596.833 622.133 / 596.833 Weight 191 lb 4 oz Intake: IV 501.7 / 7311.498 6196.133 / 1708.833 Oral 73 / 73 Output: Urine 600 / 1185 585 / 1185 Other: Urine Color Yellow Yellow Data Completed and Pending Labs on day of discharge: Labs from last 24 hours 12/16/20 06:45 WBC 14.85 H RBC 3.48 L Hgb 9.7 L Hct 29.6 L MCV 85.1 MCH 27.9 MCHC 32.8 RDW 14.9 H Plt Count 182 MPV 10.9
[2020-12-16 15:56] VITALS: BP 104/57; PULSE 59; RESP 16; TEMP 36.5; O2SAT 98
[2020-12-16 19:45] VITALS: BP 102/63; PULSE 75; RESP 16; TEMP 37.1; O2SAT 97
[2020-12-17 07:30] VITALS: BP 114/77; PULSE 59; RESP 16; TEMP 36.4; O2SAT 99
[2020-12-17] MEDS: Docusate Sodium 100 MG CAP PO (08:03)
[2020-12-17] MEDS: Acetaminophen 325 MG TAB 650 MG PO (08:04)
[2020-12-17] MEDS: Ibuprofen 600 MG TAB PO (08:05)
[2020-12-17] MEDS: Dibucaine 1% 28 GM TUBE TP (08:15)
[2020-12-17] MEDS: buPROPion 100 MG TAB PO (09:04)
--- NOTE | 2020-12-17 10:26 | OBPPV_ITS ---
Date of service: 12/17/20 Time of Service: 10:26 Assessment and Plan Assessment and plan (1) Term delivered: Status: Acute Assessment and plan: A: PPD#2, nml recovery Began taking Wellbutrin yesterday without trouble P: Did not discharge to home yesterday after all, will d/c today Plans IUD insertion at 6-8 wks Varicella vaccine #1 has been given Start iron supplement after first BM F/up at 2 & 6 wks , written instructions reviewed & given to pt Subjective Subjective Patient comments: No complaints, Pain well controlled, Tolerating diet and Flatus present [place] baby status: Doing well, Rooming in and Strong Bonding Observed [place] feeding status: Exclusively breast feeding Exam Physical Exam Vital signs: Temp Pulse Resp BP Pulse Ox 98.8 F 75 16 102/63 97 12/16/20 19:45 12/16/20 19:45 12/16/20 19:45 12/16/20 19:45 12/16/20 19:45 Constitutional Constitutional: no acute distress HEENT Exam HEENT Exam: Normal Neck Exam Neck Exam: Normal Breast Exam Bilateral: Breast Exam: Normal and Soft Respiratory Exam Respiratory Exam: Normal Cardiovascular Exam Cardiovascular Exam: Normal Abdominal Exam Abdomen: Other (soft, nontender) Fundal Exam Fundus: Below Umbilicus and Firm Rectal Exam Rectal Exam: Normal Exam Perineum: Intact Extremities Exam Extremity Exam: Normal Back/Spine/Pelvis Exam Back Exam: Normal Skin Exam Skin Exam: Normal Neurological Exam Neurological Exam: Normal Psychiatric Exam Psychiatric Exam: Normal Results Hemoglobin/Hematocrit: Hgb 9.7 g/dL (11.2-15.7) L 12/16/20 06:45 Hct 29.6 % (36.0-46.0) L 12/16/20 06:45 Abnormal Lab Findings: Abnormal Labs 12/15/20 12/16/20 05:27 06:45 WBC 14.57 H 14.85 H RBC 3.48 L Hgb 9.7 L Hct 35.6 L 29.6 L RDW 14.8 H 14.9 H
== END 2020-12-17 11:35 | disposition home or self-care (01) | DRG 807 ==
PROVIDERS: Admitting Provider Advanced Practice Midwife; Visit Provider Advanced Practice Midwife
DX: O42.02 Full-term premature rupture of membranes, onset of labor within 24 hours of rupture (principal); Z37.0 Single live birth; Z3A.40 40 weeks gestation of pregnancy; O69.1XX0 Labor and delivery complicated by cord around neck, with compression, not applicable or unspecified; Z14.1 Cystic fibrosis carrier; Z20.822 Contact with and (suspected) exposure to COVID-19; O90.81 Anemia of the puerperium; D64.9 Anemia, unspecified; O99.344 Other mental disorders complicating childbirth; F32.9 Major depressive disorder, single episode, unspecified
CPT/HCPCS: 36415; 85027; 86850; 86900; 86901; 87635; J2405

== ENCOUNTER 2021-01-31 16:33 | Outpatient (REF) | payer BC, MEDICAID, SELFPAY ==
--- NOTE | 2021-01-31 15:15 | PAPFT_PTH ---
PATIENT: Lo Zaidi LOC: [facility] U#:[id number] AGE/SX: 25/F ROOM: RE01/31/[address]: Jena Montilla CNM : 1995 BED: DIS: 01/31/2021 SPEC #: [id number] RECD: 01/31/21 16:46 STATUS: REJI REQ #: [id number] CAREY: 01/31/21 15:[address]: Jena Montilla [facility] Cytology RECD BY: Anisa Briggs ENTERED: 01/31/21 16:46 SP TYPE: PAPFT OT DR: Unknown,Unknown Tissues: 1 - CX/ENDOCX FOR PAP SMEARS Procedures: PAP THIN PREP/[facility] Screening Comments:
[2021-02-04 15:19] LABS: Chlamydia Result Negative (Negative); GC Result Negative (Negative)
== END 2021-01-31 16:34 | disposition home or self-care (01) ==
LOC: LBN 16:33
PROVIDERS: Visit Provider Advanced Practice Midwife
DX: Z12.4 Encounter for screening for malignant neoplasm of cervix (principal); Z11.3 Encounter for screening for infections with a predominantly sexual mode of transmission; R87.610 Atypical squamous cells of undetermined significance on cytologic smear of cervix (ASC-US)
CPT/HCPCS: 87491; 87591; 88142

== ENCOUNTER 2021-11-18 16:13 | Outpatient (REF) | payer BC, MEDICAID, SELFPAY ==
[2021-11-18 14:10] LABS: Abs Immature Grans 0.03 10^3/uL (0.0-0.06); Absolute Basophil Count 0.04 10^3/uL (0.0-0.2); Absolute Eosinophil Count 0.06 10^3/uL (0.0-0.7); Absolute Lymphocyte Count 2.38 10^3/uL (1.2-3.4); Absolute Monocyte Count 0.68 10^3/uL (0.1-0.8); Absolute Neutrophil Count 6.66 10^3/uL (1.2-6.7); Basophils % 0.4; Eosinophils % 0.6; HCT 39.1 % (36.0-46.0); HGB 13.1 g/dL (11.2-15.7); Immature Grans % 0.3; Lymphocytes % 24.2; MCH 28.9 pg (27.0-33.0); MCHC 33.5 % (32.0-36.0); MCV 86 fL (80-95); MPV 9.5 fL (8.0-11.0); Monocytes % 6.9; Neutrophils % 67.6; Platelet Count 378 10^3/uL (130-400); RBC 4.53 10^6/uL (3.93-5.22); RDW 13.3 % (11.7-14.6); RDW-SD 41.7 fL; WBC 9.85 10^3/uL (4.4-10.8)
[2021-11-18 14:14] LABS: ESR 6 mm/hr (0-20)
[2021-11-18 14:19] LABS: Uric Acid 5.2 mg/dL (2.6-6.0)
[2021-11-18 14:20] LABS: C-Reactive Protein < 0.05 mg/dL (0.0-0.3)
== END 2021-11-18 16:14 | disposition home or self-care (01) ==
LOC: LBN 16:13
PROVIDERS: Visit Provider Nurse Practitioner Family
DX: M79.644 Pain in right finger(s) (principal); L08.9 Local infection of the skin and subcutaneous tissue, unspecified
CPT/HCPCS: 85652; 84550; 85025; 86140

== ENCOUNTER 2022-01-22 10:11 | Outpatient (REF) | payer BC, MEDICAID, SELFPAY ==
--- NOTE | 2022-01-22 09:00 | PAPFT_PTH ---
PATIENT: Lo Zaidi LOC: [facility] U#:[id number] AGE/SX: 26/F ROOM: RE01/22/[address]: Jena Ham : 1995 BED: DIS: 01/22/2022 SPEC #: [id number] RECD: 01/22/22 13:22 STATUS: REJI REMarcellus #: [id number] CAREY: 01/22/22 09:[address]: Jena Ham [facility] Cytology RECD BY: Anisa Briggs ENTERED: 01/22/22 13:22 SP TYPE: PAPFT OTHR DR: Unknown,Unknown Tissues: 1 - CX/ENDOCX FOR PAP SMEARS Procedures: PAP THIN PREP/[facility] Screening Comments: [id number] (CHLAMYDIA/GC)
[2022-01-23 15:14] LABS: Chlamydia Result Negative (Negative); GC Result Negative (Negative)
== END 2022-01-22 10:12 | disposition home or self-care (01) ==
LOC: LBN 10:11
PROVIDERS: Visit Provider Advanced Practice Midwife
DX: N89.8 Other specified noninflammatory disorders of vagina (principal); Z12.4 Encounter for screening for malignant neoplasm of cervix; Z11.3 Encounter for screening for infections with a predominantly sexual mode of transmission
CPT/HCPCS: 87491; 87591; 88142; 87480; 87510; 87660

== ENCOUNTER 2022-09-03 10:12 | Outpatient (REF) | payer BC, MEDICAID, SELFPAY ==
[2022-09-03 19:25] LABS: HGB 13.8 g/dL (11.2-15.7); MCH 29.5 pg (27.0-33.0); MCHC 34.5 % (32.0-36.0); MCV 86 fL (80-95); Platelet Count 393 10^3/uL (130-400); RBC 4.68 10^6/uL (3.93-5.22); RDW 12.8 % (11.7-14.6); RDW-SD 39.5 fL; WBC 8.37 10^3/uL (4.4-10.8)
[2022-09-03 20:25] LABS: FREE T4 1.05 ng/dL (0.76-1.46); TSH 0.44 uIU/mL (0.36-3.74)
== END 2022-09-03 10:13 | disposition home or self-care (01) ==
LOC: NCHCN 10:12
PROVIDERS: Visit Provider Physician Assistant
DX: R00.2 Palpitations (principal)
CPT/HCPCS: 85027; 84439; 84443

== ENCOUNTER 2023-01-23 14:52 | Outpatient (REF) | payer BC, MEDICAID, SELFPAY ==
--- NOTE | 2023-01-23 14:00 | PAPFT_PTH ---
PATIENT: Lo Zaidi LOC: [facility] U#:[id number] AGE/SX: 27/F ROOM: RE01/23/[address]: Breanna Bell MD : 1995 BED: DIS: 01/23/2023 SPEC #: [id number] RECD: 01/23/23 17:09 STATUS: REJI REQ #: [id number] CAREY: 01/23/23 14:[address]: Breanna Bell DEPT: [facility] Cytology RECD BY: Anisa Briggs Tissues: 1 - CX/ENDOCX FOR PAP SMEARS Procedures: PAP THIN PREP/[facility] Screening Comments: [id number]
== END 2023-01-23 14:53 | disposition home or self-care (01) ==
LOC: LBN 14:52
PROVIDERS: Visit Provider Obstetrics & Gynecology
DX: Z12.4 Encounter for screening for malignant neoplasm of cervix (principal)
CPT/HCPCS: 88142

== ENCOUNTER 2024-02-04 17:58 | Outpatient (REF) | payer BC, SELFPAY ==
--- NOTE | 2024-02-04 10:57 | PAPFT_PTH ---
PATIENT: Lo Zaidi LOC: [facility] U#:[id number] AGE/SX: 28/F ROOM: RE02/04/[address]: Breanna Bell MD : 1995 BED: DIS: 02/04/2024 SPEC #: [id number] RECD: 02/04/24 18:14 STATUS: REJI REQ #: [id number] CAREY: 02/04/24 10:[address]: Breanna Bell [facility] Cytology RECD BY: Anisa Briggs ENTERED: 02/04/24 18:14 SP TYPE: PAPFT OTHR DR: Iris Salcedo Tissues: 1 - CX/ENDOCX FOR PAP SMEARS Procedures: PAP THIN PREP/[facility] Screening Comments: [id number]
--- OUTSIDE RECORDS SUMMARY | 2024-02-04 18:00 | XMS_ITS | Encounter Summary ---
Author Organization [facility] Address [address] [place] [address] Care Team Providers Care Manager E Learning Name Role Phone Roscoe Sugey Collier INTAKE CLINICIAN Primary Care Provider [phone] Aldo Hathaway RPA Primary Care Provider [phone] Encounter Details Date Type Department Care Team (Late st Contact Info) Description 07/11/2021 Lab Requisition [facility] Pathology & Laboratory Medicine - [address] [phone] Outr Resulting Lab, Provider Social History Tobacco Use Types Packs/Day Years Used Date Smoking Tobacco: Passive Smo ke Exposure - Never Smoker Interpersonal Safety Answer Date Record ed Physically Hurt Never 10/30/2019 Verbally Threaten Not on file 10/30/2019 Sex and Gender Information Value Date Recorded Sex Assigned at Not on file Gender Identity Not on file Sexual Orientation Not on file documented as of this encounter Functional Status Functional Status Response Date of Assess ment Because of a physical, menta l, or emotional condition, does this person have difficulty doing errands alone such as visiting a doctor's office or shopping? No 09/27/2014 Cognitive Status Response Date of Assessm ent Because of a physical, menta l, or emotional condition, does this person have serious difficulty concentrating, remembering, or making decisions? No 09/27/2014 documented as of this encounter Plan of Treatment Not on file documented as of this encounter Procedures Procedure Name Priority Date/Time Associated Diagnosis Comments HEPATITIS C AB W REFLEX TO HCV RNA BY PCR Routine 07/11/2021 14:44 EDT HEPATITIS B SURFACE ANTIGEN Routine 07/11/2021 14:44 EDT documented in this encounter Results * HEPATITIS B SURFACE ANTIGEN (07/11/2021 14:44 EDT) Hep B Surface Ag Negative Negative 07/12/2021 9:52 EDT [facility] Blood VENOUS BLOOD / Unknown 07/11/2021 14:44 EDT 07/11/2021 21:04 EDT Provider Outr Resulting Lab CHEMISTRY & BLOOD GAS ORDERABLES [facility] [address] [place] [address] * HEPATITIS C AB W REFLEX TO HCV RNA BY PCR (07/11/2021 14:44 EDT) Hep C Antibody Negative Negative 07/12/2021 10:34 EDT [facility] Blood VENOUS BLOOD / Unknown 07/11/2021 14:44 EDT 07/11/2021 21:04 EDT Provider Outr Resulting Lab CHEMISTRY & BLOOD GAS ORDERABLES Performing Organization Address City/[facility] [address]/ZIP Co de Phone Number [facility] [address] [place] [address] documented in this encounter Visit Diagnoses Not on filedocumented in this encounter Care Teams Manager E Learning Relationship Specialty Start Date End Date Sugey Malhotra FNP [address] [place] [address] [place] [address] PCP - General 09/26/14 02/19/23 Aldo Hathaway RPA [address] [place] [address] PCP - General Family Medicine - Primary Care 02/20/23 documented as of this encounter
--- OUTSIDE RECORDS SUMMARY | 2024-02-04 18:00 | XMS_ITS | Encounter Summary ---
Author Organization [facility] Address [address] [place] [address] Care Team Providers Care Lithographed Plate Inspector Name Role Phone Sugey Malhotra RN FIRST ASSIST Primary Care Provider [phone] Encounter Details Date Type Department Care Team (Late st Contact Info) Description 04/21/2017 Results Only [facility] - Main Dresser [address] [place], [place] [address] Tiffanie Mccormick, [facility] [address] [facility] [address] [place], [place] [id number] Social History Tobacco Use Types Packs/Day Years Used Date Smoking Tobacco: Passive Smo ke Exposure - Never Smoker Sex and Gender Information Value Date Recorded [...] Procedure Name Priority Date/Time Associated Diagnosis Comments CHLAMYDIA/N. GONORRHOEAE AMPLIFIED NUCLEIC ACID Routine 04/21/2017 15:30 EST documented in this encounter Results * CHLAMYDIA/N. GONORRHOEAE AMPLIFIED RNA (04/21/2017 15:30 EST) Chlamydia Result Negative 04/22/2017 12:32 EST [facility] GC Result Negative 04/22/2017 12:32 EST [facility] CERVIX UTERI STRUCTURE / Unknown 04/21/2017 15:30 EST 04/21/2017 20:07 EST Tiffanie Mccormick [facility] MICROBIOLOGY - GENERAL ORDERABLES [facility] [address] [place] [address] documented in this encounter Visit Diagnoses Not on filedocumented in this encounter Care Teams Lithographed Plate Inspector Relationship Specialty Start Date End Date Sugey Malhotra FNP [address] [place] [address] [place] [address] PCP - General 09/26/14 02/19/23 documented as of this encounter
--- OUTSIDE RECORDS SUMMARY | 2024-02-04 18:00 | XMS_ITS | Encounter Summary ---
Author Organization [facility] Address [address] [place] [address] Care Team Providers Care Councillor [employer] Land [employer] Name Role Phone Sugey Malhotra SUPERVISOR MENDING Primary Care Provider [phone] Encounter Details Date Type Department Care Team (Late st Contact Info) Description 11/23/2017 14:04 EDT - 11/23/2017 14:06 EDT Hospital Encounter [address] [address] [place], SHIRT SEWER [address] [facility] [address] [place] [address] Discharge Disposition: Home or Self Care Social History Tobacco Use Types Packs/Day Years [...] No 09/27/2014 documented as of this encounter Discharge Diagnoses Diagnosis Z11.3 Encounter for screening for infections with a predominantly sexual mode of transmission-Z11.3[ICD-10-CM] Z11.8 Encounter for screening for other infectious and parasitic diseases-Z11.8[ICD-10-CM] documented in this encounter Medications at Time of Discharge Medication Sig Dispensed Refills Start Date End Date Miscellaneous Medication - See Admin Instructions control to control heavy periods. naproxen (NAPROSYN) 500 mg tablet Take 1 Tab by mouth 2 times daily with breakfast and dinner 60 Tab 11 09/27/2014 documented as of this encounter Discharge Disposition Disposition Code Departure Means Destination Home or Self Care documented in this encounter Plan of Treatment Not on file documented as of this encounter Visit Diagnoses Not on filedocumented in this encounter Care Teams Councillor Aboriginal Land Council Relationship Specialty Start Date End Date uSgey Malhotra FNP [address] [place] [address] [place] [address] PCP - General 09/26/14 02/19/23 documented as of this encounter
--- OUTSIDE RECORDS SUMMARY | 2024-02-04 18:00 | XMS_ITS | Encounter Summary ---
Author Organization [facility] Address [address] [place] [address] Care Team Providers Care Building Code Inspector Name Role Phone Roscoe Sugey Collier HOME ADVISOR Primary Care Provider [phone] Aldo Hathaway RPA Primary Care Provider [phone] Encounter Details Date Type Department Care Team (Late st Contact Info) Description 11/22/2020 Lab Requisition [facility] Pathology & Laboratory Medicine - [address] [phone] Outr Resulting Lab, Provider Social History Tobacco [...] Procedure Name Priority Date/Time Associated Diagnosis Comments VARICELLA IGG ANTIBODY Routine 11/22/2020 15:06 EDT documented in this encounter Results * VARICELLA IGG ANTIBODY (11/22/2020 15:06 EDT) Varicella IgG Ab Negative See Note 11/23/2020 10:54 EDT [facility] Comment:Absence of detectabl e Varicella Zoster virus IgG antibodies. A negative result generally indicates no detectable antibody, but does not rule out acute infection. If VZV exposure is suspected, a second sample should be collected and tested no less than one or two weeks later. Blood VENOUS BLOOD / Unknown 11/22/2020 15:06 EDT 11/22/2020 20:41 EDT Provider Outr Resulting Lab IMMUNOLOGY A ND SEROLOGY ORDERABLES Performing Organization Address City/State/[facility] Co de Phone Number [facility] [address] [place] [address] documented in this encounter Visit Diagnoses Not on filedocumented in this encounter Care Teams Building Code Inspector Relationship Specialty Start Date End Date Sugey Malhotra FNP [address] [place] [address] PCP - General 09/26/14 02/19/23 Aldo Hathaway RPA [address] [place] [address] PCP - General Family Medicine - Primary Care 02/20/23 documented as of this encounter
--- OUTSIDE RECORDS SUMMARY | 2024-02-04 18:00 | XMS_ITS | Encounter Summary ---
Author Organization [facility] Address [address] [place] [address] Care Team Providers Care Nursing Informatics Analyst Name Role Phone Sugey Malhotra Nando [employer] BRO[employer]IPPER Primary Care Provider [phone] Aldo Hathaway RPA Primary Care Provider [phone] Encounter Details Date Type Department Care Team (Latest Contact Info) Description 07/30/2020 Lab Requisition [facility] Pathology & Laboratory Medicine - [facility] [address] [place] [address] Gaby Milner, [address] [address] state, incidental; Encounter for screening for malignant neoplasm of cervix; Encounter for screening for infections with a predominantly sexual mode of transmission; Encounter for screening for other infectious and parasitic diseases Social History Tobacco Use Types Packs/Day Years [...] Procedure Name Priority Date/Time Associated Diagnosis Comments PAP TEST Today 07/30/2020 16:43 EDT documented in this encounter Results * PAP TEST (07/30/2020 16:43 EDT) Specimens A. Cervix and/or Endocervix , ThinPrep Imaging System with Manual Evaluation 08/02/2020 14:29 EDT [facility] Specimen Adequacy Satisfactory for Evaluation - transformation zone component present 08/02/2020 14:29 EDT [facility] General Categorization Negative for intraepithelial lesion or malignancy 08/02/2020 14:29 EDT [facility] Attestation . 08/02/2020 14:29 EDT [facility] at 1429 Clinical History Clinical History, Signs, Symptoms, Chief Complaint, Pertaining to This Order: See below ?: Yes 08/02/2020 14:29 EDT [facility] Performing Lab [facility] 08/02/2020 14:29 T [facility] Scanned Images 08/02/2020 14:29 EDT [facility] Papanicolaou smear specimen (specimen) CERVIX UTERI STRUCTURE / Unknown 07/30/2020 16:43 EDT 07/31/2020 12:31 EDT Gaby Milenr [facility] PATH[facility] ORDERA BERE [facility] [address] [place] [address] documented in this encounter Visit Diagnoses Diagnosis state, incidental Encounter for screening for malignant neoplasm of cervix Screening for malignant neoplasm of the cervix Encounter for screening for infections with a predominantly sexual mode of transmission Encounter for screening for other infectious and parasitic diseases documented in this encounter Care Teams Nursing Informatics Analyst Relationship Specialty Start Date End Date Sugey Malhotra FNP [address] [place] [address] [place] [address] PCP - General 09/26/14 02/19/23 Aldo Hathaway RPA [address] [place] [address] PCP - General Family Medicine - Primary Care 02/20/23 documented as of this encounter
--- OUTSIDE RECORDS SUMMARY | 2024-02-04 18:00 | XMS_ITS | Encounter Summary ---
Author Organization [facility] Address [address] [place] [address] Care Team Providers Care Hedis Registered Nurse Rn Name Role Phone Roscoe Sugey Collier LOCATION DIRECTOR Primary Care Provider [phone] Aldo Hathaway RPA Primary Care Provider [phone] Encounter Details Date Type Department Care Team (Late st Contact Info) Description 07/11/2021 Lab Requisition [facility] Pathology & Laboratory Medicine - [address] [phone] Outr Resulting Lab, Provider Social History Tobacco [...] Procedure Name Priority Date/Time Associated Diagnosis Comments HIV 1/2 ANTIGEN AND ANTIBODY, 4TH GENERATION Routine 07/11/2021 14:46 EDT documented in this encounter Results * HIV 1/2 ANTIGEN AND ANTIBODY, 4TH GENERATION (07/11/2021 14:46 EDT) HIV 1 and 2 Antibody/p24 Antigen, 4th Generation Negative Negative 07/12/2021 12:36 EDT [facility] Comment:If acute HIV-1 infec tion is suspected in a high risk patient, submit plasma specimen for HIV-1 RNA quantitation test. Blood VENOUS BLOOD / Unknown 07/11/2021 14:46 EDT 07/11/2021 21:04 EDT Narrative [facility] - 07/12/2021 12:36 EDT Fourth Generation assay performed on the [employer] XPT. Provider Outr Resulting Lab IMMUNOLOGY A ND SEROLOGY ORDERABLES [facility] [address] [place] [address] documented in this encounter Visit Diagnoses Not on filedocumented in this encounter Care Teams Hedis Registered Nurse Rn Relationship Specialty Start Date End Date Sugey Malhotra FNP [address] [place] [address] [place] [address] PCP - General 09/26/14 02/19/23 Aldo Hathaway RPA [address] [place] [address] PCP - General Family Medicine - Primary Care 02/20/23 documented as of this encounter
--- OUTSIDE RECORDS SUMMARY | 2024-02-04 18:00 | XMS_ITS | Encounter Summary ---
Author Organization [facility] Address [address] [place] [address] Care Team Providers Care Lease Administrator Name Role Phone Roscoe Sugey Collier METALLURGICAL SPECIALIST Primary Care Provider [phone] Aldo Hathaway RPA Primary Care Provider [phone] Encounter Details Date Type Department Care Team (Late st Contact Info) Description 02/01/2021 Lab Requisition [facility] Pathology & Laboratory Medicine - [address] [phone] Outr Resulting Lab, Provider Social History Tobacco [...] Comments CHLAMYDIA/N. GONORRHOEAE AMPLIFIED NUCLEIC ACID Routine 01/31/2021 15:10 EDT documented in this encounter Results * CHLAMYDIA/N. GONORRHOEAE AMPLIFIED RNA (01/31/2021 15:10 EDT) Neisseria gonorrhoeae Result Negative Negative 02/04/2021 15:13 EST [facility] Chlamydia trachomatis Result Negative Negative 02/04/2021 15:13 EST [facility] Swab ENTIRE ENDOCERVIX / Unknown 01/31/2021 15:10 EDT 02/01/2021 16:45 EDT Provider Outr Resulting Lab MICROBIOLOGY - GENERAL ORDERABLES Performing Organization Address City/State/[facility] Co de Phone Number [facility] [address] [place] [address] documented in this encounter Visit Diagnoses Not on filedocumented in this encounter Care Teams Lease Administrator Relationship Specialty Start Date End Date Sugey Malhotra FNP [address] [place] [address] [place] [address] PCP - General 09/26/14 02/19/23 Aldo Hathaway RPA [address] [place] [address] PCP - General Family Medicine - Primary Care 02/20/23 documented as of this encounter
--- OUTSIDE RECORDS SUMMARY | 2024-02-04 18:00 | XMS_ITS | Encounter Summary ---
Author Organization [facility] Address [address] [place] [address] Care Team Providers Care Senior Construction Estimator Name Role Phone Roscoe Sugey L SUPERVISOR SMOKE CONTROL Primary Care Provider [phone] Aldo Hathaway RPA Primary Care Provider [phone] Encounter Details Date Type Department Care Team (Late st Contact Info) Description 07/30/2020 Lab Requisition [facility] Pathology & Laboratory Medicine - [address] [phone] Outr Resulting Lab, Provider Social History Tobacco [...] Associated Diagnosis Comments CHLAMYDIA/N. GONORRHOEAE AMPLIFIED NUCLEIC ACID, THINPREP Routine 07/30/2020 16:43 EDT documented in this encounter Results * CHLAMYDIA/N. GONORRHOEAE AMPLIFIED RNA, THINPREP (07/30/2020 16:43 EDT) Neisseria gonorrhoeae Result Negative Negative 07/31/2020 13:45 EDT [facility] Chlamydia trachomatis Result Negative Negative 07/31/2020 13:45 EDT [facility] Papanicolaou smear specimen (specimen) CERVIX UTERI STRUCTURE / Unknown 07/30/2020 16:43 EDT 07/31/2020 8:54 EDT Provider Outr Resulting Lab MICROBIOLOGY - GENERAL ORDERABLES Performing Organization Address City/State/[facility] Co de Phone Number [facility] [address] [place] [address] documented in this encounter Visit Diagnoses Not on filedocumented in this encounter Care Teams Senior Construction Estimator Relationship Specialty Start Date End Date Sugey Malhotra FNP [address] [place] [address] PCP - General 09/26/14 02/19/23 Aldo Hathaway RPA [address] [place] [address] PCP - General Family Medicine - Primary Care 02/20/23 documented as of this encounter
--- OUTSIDE RECORDS SUMMARY | 2024-02-04 18:00 | XMS_ITS | Encounter Summary ---
Author Organization [facility] Address [address] [place] [address] Care Team Providers Care Threading Machine Feeder Automatic Name Role Phone Sugey Malhotra DEVELOPMENTAL SPECIALIST Primary Care Provider [phone] Reason for Visit * Reason Onset Date Comments Results 10/04/2014 Encounter Details Date Type Department Care Team (Late st Contact Info) Description 10/04/2014 Telephone [facility] Pediatric Rheumatology - [facility] [address] [place], [place] [address] Jing Allison MD [address] [place] [address],[address] [place], [place] [address] Results Social History Tobacco Use Types Packs/Day Years [...] No 09/27/2014 documented as of this encounter Miscellaneous Notes * Telephone Encounter - Jing Allison - 10/04/2014 1114 EDT Left VM, xrays normal, suggested follow up with PCP regarding MRI or spine referral. I had already call Sugey Malhotra DIRECTOR CORRECTIONAL AGENCY about plan documented in this encounter Plan of Treatment Not on file documented as of this encounter Visit Diagnoses Not on filedocumented in this encounter Care Teams Threading Machine Feeder Automatic Relationship Specialty Start Date End Date Sugey Malhotra FNP [address] [place] [address] [place] [address] PCP - General 09/26/14 02/19/23 documented as of this encounter
--- OUTSIDE RECORDS SUMMARY | 2024-02-04 18:00 | XMS_ITS | Encounter Summary ---
Author Organization [facility] Address [address] [place] [address] Care Team Providers Care Principal Librarian Name Role Phone Rivas Aldo Micheal [facility] Primary Care Provider [phone] Reason for Visit * Reason Comments Eye Problem * Consult, Test and Treat (Urgent) - Receiving Office to Obtain Authorization Specialty Diagnoses / Procedures Referred By Judie andrews Referred To Contact Ophthalmology Diagnoses Eye pain Elaine Ulloa, OD [address], [place] [address] [place] [address] [address] [place] [address] Referral ID Status Reason Start Date Expiration Date Visits Requested Visits Authorized [id number] Receiving Office to Obtain Authorization 1 1 Encounter Details Date Type Department Care Team (Late st Contact Info) Description 02/20/2023 9:30 EST Office Visit [facility] Ophthalmology - [facility] [address] [place] [address] Kayden Bennett MD [address] [facility], [facility] [address] [place] [address] Social History Tobacco Use Types Packs/Day Years [...] No 09/27/2014 documented as of this encounter Ordered Prescriptions Prescription Sig Dispensed Refills Start Date End Da te indomethacin (INDOCIN) 25 mg capsuleIndications:Episod ic cluster headache, not intractable Take 1 Capsule by mouth 3 times daily. Take with food. 15 Capsule 02/20/2023 documented in this encounter Progress Notes * Kayden Bennett MD - 02/20/2023 0975 EST Chief Complaint Patient presents with ??? Eye Problem HPI Patient referred for orbital eye pain x 1 month. Pt states shes always had dull pain but x 1 month has gotten worse. Both eyes but right eye worse than left. Pain with movement but more pain looking up and left. Pain is 7/10 when it at is worst. Eyes are more watery lately. Hx of migraines. Glassessince 8th grade. Dark haze in the upper right eye. Occ'l flashes floaters more right eye than left.Hx of several concussions. Family hx of glaucoma on both sides. Possible fam hx of AMD as well. No eye surgeries. Base Eye Exam Visual Acuity (Snellen - Linear) Right Left Dist cc 20/20 20/20 Correction: Glasses Tonometry (iCare, 9:48) Right Left Pressure 18 18 Pupils Pupils APD Right PERRL None Left PERRL None Visual Matos Right Left Full Full Extraocular Movement Right Left Full Full Neuro/Psych Oriented x3: Yes Mood/Affect: Normal Dilation Both eyes: Tropicamide 1% @ 9:48 Additional Tests Color Right Left Ishihara Slit Lamp and Fundus Exam External Exam Right Left External Mild pain to palpation superiorly Normal Exophthalmometry (Base: 100 mm) Right Left Donavan 13 mm 14 mm Slit Lamp Exam Right Left Lids/Lashes Normal Normal Conjunctiva/Sclera Trace diffuse injection, no lissamine stain Trace interpalpebral injection, no lissamine stain Cornea Clear Clear Anterior Chamber Deep and quiet Deep and quiet Iris Round and reactive Round and reactive Lens Clear Clear Vitreous Normal Normal Fundus Exam Right Left C/D Ratio 0.2 0.2 Macula Normal Normal Vessels Normal Normal Periphery Normal Normal IMPRESSION & PLAN: 1. Episodic cluster headache, not intractable -- recent exacerbation of ongoing R-side pain, classic description of intermittent events, sometimes severe, unilateral described as stabbing pain in the eye and associated with lacrimation, minor injection -- reassured pt -- she has been using OTC NSAIDS without control -- explained poorly understood syndrome, not dangerous, but hard to control -- try indomethacin 25 mg PO TID x 5 D, could afterwards consider prednisone but would consult with neuro-ophthalmology first I have reviewed the past medical, family, social and surgical history. I have reviewed the meds, allergies, and problem list. I performed my own HPI and reviewed the ROS. I personally completed the exam. The patient was instructed to call our office or go to emergency room if worse vision, worse symptoms, or new/other concerns arise. Kayden Bennett MD documented in this encounter Plan of Treatment Not on file documented as of this encounter Visit Diagnoses Diagnosis Episodic cluster headache, not intractable- Primary Episodic cluster headache documented in this encounter Historical Medications * This list may reflect changes made after this encounter. Medication Sig Dispensed Refills Start Date End Date ibuprofen (MOTRIN) 400 mg tablet Take 1 Tablet by mouth every 4 hours. added in this encounter Eye Exam Visual Acuity (Snellen - Linear) Right eye Left eye Dist cc 20/20 20/20 Correction: Glasses Tonometry (iCare, 9:48) Right eye Left eye Pressure 18 18 Pupils Pupils APD Right eye PERRL None Left eye PERRL None Visual Matos Right eye Left eye Full Full Extraocular Movement Right eye Left eye Full Full Neuro/Psych Oriented x3: Yes Mood/Affect: Normal Dilation Both eyes: Tropicamide 1% @ 9:48 Color Right eye Left eye Ishihara 14 External Exam Right eye Left eye External Mild pain to palpation superiorl y Normal Slit Lamp Exam Right eye Left eye Lids/Lashes Normal Normal Conjunctiva/Sclera Trace diffuse inject ion, no lissamine stain Trace interpalpebral injection, no lissamine stain Cornea Clear Clear Anterior Chamber Deep and quiet Deep and quiet Iris Round and reactive Round and dariel ctive Lens Clear Clear Anterior Vitreous Normal Normal Fundus Exam Right eye Left eye C/D Ratio 0.2 0.2 Macula Normal Normal Vessels Normal Normal Periphery Normal Normal Exophthalmometry (Base: 100 mm) Right eye Left eye Donavan 13 mm 14 mm Care Teams Principal Librarian Relationship Specialty Start Date End Date Aldo Hathaway RPA [address] [place] [id number] PCP - General Family Medicine - Primary Care 02/20/23 documented as of this encounter
--- OUTSIDE RECORDS SUMMARY | 2024-02-04 18:00 | XMS_ITS | Encounter Summary ---
Author Organization [facility] Address [address] [place] [address] Care Team Providers Care Environmental Remediation Consultant Name Role Phone Rivas Aldo Micheal MONTEZ Primary Care Provider [phone] Encounter Details Date Type Department Care Team (Late st Contact Info) Description 09/08/2023 Lab Requisition [facility] Pathology & Laboratory Medicine - [address] [address] Outr Resulting Lab, Provider Social History Tobacco [...] Procedure Name Priority Date/Time Associated Diagnosis Comments IMMUNOGLOBULINS Routine 09/08/2023 8:56 EDT ANTI NUCLEAR AB (ELIEL), IFA Routine 09/08/2023 8:56 EDT documented in this encounter Results * IMMUNOGLOBULINS (09/08/2023 8:56 EDT) IgG 828 610 - 1,616 mg/dL 09/09/2023 9:24 EDT [facility] IgA 189 85 - 499 mg/dL 09/09/2023 9:24 EDT [facility] IgM 187 35 - 242 mg/dL 09/09/2023 9:24 EDT [facility] Blood VENOUS BLOOD / Unknown 09/08/2023 8:56 EDT 09/08/2023 21:52 EDT Provider Outr Resulting Lab CHEMISTRY & BLOOD GAS ORDERABLES Performing Organization Address [facility]/ZIP Co de Phone Number [facility] [address] [place] [address] * ANTI NUCLEAR AB (ELIEL), IFA (09/08/2023 8:56 EDT) ELIEL Interpretation Negative Negative 2023 15:16 EDT [facility] Comment:No titer performed, ELIEL Screen is negative. Blood VENOUS BLOOD / Unknown 09/08/2023 8:56 EDT 09/08/2023 21:52 EDT Narrative [facility] - 09/09/2023 15:16 EDT Results were obtained with the [employer] NOVA Lite HEp-2 ELIEL Kit by indirect immunofluorescence. Provider Outr Resulting Lab IMMUNOLOGY A ND SEROLOGY ORDERABLES Performing Organization Address City/[facility]/ZIP Co de Phone Number [facility] [address] [place] [address] documented in this encounter Visit Diagnoses Not on filedocumented in this encounter Care Teams Environmental Remediation Consultant Relationship Specialty Start Date End Date Aldo Hathaway RPA [address] [place] [id number] PCP - General Family Medicine - Primary Care 02/20/23 documented as of this encounter
--- OUTSIDE RECORDS SUMMARY | 2024-02-04 18:00 | XMS_ITS | Referral Summary ---
Author Organization [facility] Address [address] [place] [address] Care Team Providers Care Side Laster Name Role Phone Rivas Aldo Micheal [facility] Primary Care Provider [phone] Allergies No known active allergies Medications Medication Sig Dispensed Refills Start Date End Date Status Miscellaneous Medication - See Admin Instructions control to control heavy periods. Active naproxen (NAPROSYN) 500 mg tablet Take 1 Tab by mouth 2 times daily with breakfast and dinner 60 Tab 11 09/27/2014 Active Additional Information Patient not taking.Reported on 02/20/2023 ibuprofen (MOTRIN) 400 mg tablet Take 1 Tablet by mouth every 4 hours. Active indomethacin (INDOCIN) 25 mg capsuleIndications: Episodic cluster headache, not intractable Take 1 Capsule by mouth 3 times daily. Take with food. 15 Capsule 02/20/2023 Active Social History Tobacco Use Types Packs/Day Years Used Date Smoking Tobacco: Passive Smo ke Exposure - Never Smoker Interpersonal Safety Answer Date Record ed Physically Hurt Never 10/30/2019 Verbally Threaten Not on file 10/30/2019 Sex and Gender Information Value Date Recorded Sex Assigned at Not on file Gender Identity Not on file Sexual Orientation Not on file Last Filed Vital Signs Vital Sign Reading Time Taken Comments Blood Pressure 109/65 09/27/2014 1353 EDT Pulse 48 09/27/2014 1353 EDT Temperature 36.8 ??C (98.2 ??F) 09/27/2014 1353 EDT Respiratory Rate - - Oxygen Saturation - - Inhaled Oxygen Concentration - - Weight 68.9 kg (151 lb 14.4 oz) 09/27/2014 1353 EDT Height 157.4 cm (5' 1.97) 09/27/2014 1353 EDT Body Mass Index 27.81 09/27/2014 1353 EDT Functional Status Functional Status Response Date of [...] concentrating, remembering, or making decisions? No 09/27/2014 Plan of Treatment Not on file Procedures Procedure Name Priority Date/Time Associated Diagnosis Comments HEPATITIS C AB W REFLEX TO HCV RNA BY PCR Routine 07/11/2021 14:44 EDT from Last 3 Months or Most Recently Relevant to Health Maintenance Results * HEPATITIS C AB W REFLEX TO HCV RNA BY PCR (07/11/2021 14:44 EDT) Hep C Antibody Negative Negative 07/12/2021 10:34 EDT [facility] Blood VENOUS BLOOD / Unknown 07/11/2021 14:44 EDT 07/11/2021 21:04 EDT Provider Outr Resulting Lab CHEMISTRY & BLOOD GAS ORDERABLES [facility] [address] [place] [address] from Last 3 Months or Most Recently Relevant to Health Maintenance Care Teams Side Laster Relationship Specialty Start Date End Date Aldo Hathaway RPA [address] [facility] [place] [address] [place] [id number] PCP - General Family Medicine - Primary Care 02/20/23
--- OUTSIDE RECORDS SUMMARY | 2024-02-04 18:00 | XMS_ITS | Encounter Summary ---
Author Organization [facility] Address [address] [place] [address] Care Team Providers Care Occupational Nurse Name Role Phone Sugey Malhotra SNOWBOARD DESIGNER Primary Care Provider [phone] Encounter Details Date Type Department Care Team (Late st Contact Info) Description 04/21/2017 19:43 EST - 04/21/2017 23:59 EST Hospital Encounter [address] [address] Tiffanie Mccormick, [facility] [address] [facility],[address] [address] [place], [place] [id number] Discharge Disposition: Home or Self Care Social [...] on filedocumented in this encounter Care Teams Occupational Nurse Relationship Specialty Start Date End Date Sugey Malhotra FNP [address] [place] [address] [place] [address] PCP - General 09/26/14 02/19/23 documented as of this encounter
--- OUTSIDE RECORDS SUMMARY | 2024-02-04 18:00 | XMS_ITS | Encounter Summary ---
Author Organization [facility] Address [address] [place] [address] Care Team Providers Care Meteorological Observer Name Role Phone Sugey Malhotra CAR STARTER Primary Care Provider [phone] Encounter Details Date Type Department Care Team (Late st Contact Info) Description 11/23/2017 Results Only [facility] [phone] Ward Lofton, TRAVEL COUNSELOR [address] [address] Social History Tobacco Use Types Packs/Day Years [...] Date/Time Associated Diagnosis Comments CHLAMYDIA/N. GONORRHOEAE AMPLIFIED RNA, URINE Routine 11/23/2017 0:51 EDT documented in this encounter Results * CHLAMYDIA/N. GONORRHOEAE AMPLIFIED RNA, URINE (11/23/2017 0:51 EDT) Chlamydia Result Negative 11/25/19 13:22 EDT [facility] Comment: A first catch urine specimen is acceptable for detection of Gonorrhea and Chlamydia, but might detect up to 10% fewer infections when compared with vaginal and endocervical swab samples. GC Result Negative 11/24/2017 13:22 EDT [facility] Comment: A first catch urine specimen is acceptable for detection of Gonorrhea and Chlamydia, but might detect up to 10% fewer infections when compared with vaginal and endocervical swab samples. URINE / Unknown 11/23/2017 0 :51 EDT 11/23/2017 21:12 EDT Ward Lofton APRN MICROBIOLOGY - GEN ERAL ORDERABLES [facility] [address] [place] [address] documented in this encounter Visit Diagnoses Not on filedocumented in this encounter Care Teams Meteorological Observer Relationship Specialty Start Date End Date Sugey Malhotra FNP [address] [place] [address] [place] [address] PCP - General 09/26/14 02/19/23 documented as of this encounter
--- OUTSIDE RECORDS SUMMARY | 2024-02-04 18:00 | XMS_ITS | Encounter Summary ---
Author Organization [facility] Address [address] [place] [address] Care Team Providers Care Warp Hauler Name Role Phone Sugey Malhotra Nando HOG TENDER Primary Care Provider [phone] Aldo Hathaway RPA Primary Care Provider [phone] Encounter Details Date Type Department Care Team (Late st Contact Info) Description 01/26/2023 Lab Requisition [facility] Pathology & Laboratory Medicine - [address] [address] Breanna Bell MD [address] [place] [address] [place] [address] Encounter for other general examination Social History Tobacco Use Types Packs/Day Years [...] Date/Time Associated Diagnosis Comments PAP TEST Today 01/23/2023 14:00 EDT Encounter for other general examination documented in this encounter Results * PAP TEST (01/23/2023 14:00 EDT) Specimens A. Cervix and/or Endocervix , ThinPrep Imaging System with Manual Evaluation 01/30/2023 16:42 EDT [facility] Specimen Adequacy Satisfactory for Evaluation - transformation zone component absent 01/30/2023 16:42 EDT [facility] General Categorization Negative for intraepithelial lesion or malignancy 01/30/2023 16:42 EDT [facility] Attestation . 01/30/2023 16:42 T [facility] at 1642 Clinical History See below 01/31/20 16:42 EDT [facility] Performing Lab [facility] 01/30/2023 16:42 EDT [facility] Scanned Images 01/30/2023 16:42 EDT [facility] Pap Test CERVIX UTERI STRUCTURE / Unknown 01/23/2023 14:00 EDT 01/26/2023 12:36 EDT Breanna Bell MD PATHOLOGY ORDERABLES [facility] [address] [place] [address] documented in this encounter Visit Diagnoses Diagnosis Encounter for other general examination documented in this encounter Care Teams Warp Hauler Relationship Specialty Start Date End Date Sugey Malhotra FNP [address] [place] [address] [place] [address] PCP - General 09/26/14 02/19/23 Aldo Hathaway RPA [address] [place] [address] PCP - General Family Medicine - Primary Care 02/20/23 documented as of this encounter
--- OUTSIDE RECORDS SUMMARY | 2024-02-04 18:00 | XMS_ITS | Encounter Summary ---
Author Organization [facility] Address [address] [place] [address] Care Team Providers Care Perlite Grinder Name Role Phone RoscoeSugey Nando GETTERING OPERATOR Primary Care Provider [phone] Aldo Hathaway RPA Primary Care Provider [phone] Reason for Visit * Reason Onset Date Comments Eye Pain 02/18/2023 Encounter Details Date Type Department Care Team (Late st Contact Info) Description 02/18/2023 Telephone [facility] Ophthalmology - [place] [address] [place], [place] [id number] Unknown, Doctor MD Eye Pain Social History Tobacco Use Types Packs/Day Years [...] encounter Miscellaneous Notes * Telephone Encounter - Chanel Koroma - 02/18/20[address] Bennett for 02/20/23. The patient has been notified. * Telephone Encounter - Sonja Weems - 02/18/2023 1312 EST Images from the original note were not included. Incoming URGENT referral: Please see scanned referral. Snip from referral face sheet: documented in this encounter Plan of Treatment Not on file documented as of this encounter Visit Diagnoses Not on filedocumented in this encounter Care Teams Perlite Grinder Relationship Specialty Start Date End Date Sugey Malhotra FNP [address] [place] [address] [place] [address] PCP - General 09/26/14 02/19/23 Aldo Hathaway RPA [address] [place] [address] PCP - General Family Medicine - Primary Care 02/20/23 documented as of this encounter
--- OUTSIDE RECORDS SUMMARY | 2024-02-04 18:00 | XMS_ITS | Clinical Summary ---
Author Organization [facility] Address [address] [place] [address] Care Team Providers Care Railroad Brakeman Name Role Phone Rivas Aldo T [facility] Primary Care Provider [phone] Allergies No known active allergies Medications Medication [...] Take with food. 15 Capsule 02/20/2023 Active Surgical History Surgery Date Site/Laterality Comments TYMPANOSTOMY TUBE PLACEMENT Medical History Medical History Date Comments Headache Joint pain Family History Medical History Relation Comments *Other(comment) Brother epilepsy Psoriasis Maternal Aunt Relation Status Comments Brother Alive Father Alive Maternal Aunt Mother Alive Social History Tobacco Use Types Packs/Day Years Used Date Smoking Tobacco: Passive Smo ke Exposure - Never Smoker Interpersonal Safety Answer Date Record ed Physically Hurt Never 10/30/2019 Verbally Threaten Not on file 10/30/2019 Sex and Gender Information Value Date Recorded Sex Assigned at Not on file Gender Identity Not on file Sexual Orientation Not on file Obstetrics History Last Filed Vital Signs Vital Sign Reading [...] Body Mass Index 27.81 09/27/2014 1353 EDT Plan of Treatment Health Maintenance Due Date Last Done Comments Hepatitis B Vaccine (1 of 3 - 19+ 3-dose series) 2016 COVID-19 Vaccine (2022-24 season) 11/28/202207/2020, 04/03/2020 Hepatitis C Screen Completed 07/11/2021, 07/20/2020 Procedures Procedure Name Priority Date/Time Associated Diagnosis Comments HEPATITIS C AB W REFLEX TO HCV RNA BY PCR Routine 07/11/2021 14:44 EDT from Last 3 Months or Most Recently Relevant to Health Maintenance Results * HEPATITIS C AB W REFLEX TO HCV RNA BY PCR (07/11/2021 14:44 EDT) Hep C Antibody Negative Negative 07/12/2021 10:34 EDT [facility] Blood VENOUS BLOOD / Unknown 07/11/2021 14:44 EDT 07/11/2021 21:04 EDT Provider Outr Resulting Lab CHEMISTRY & BLOOD GAS ORDERABLES [facility] [address] [place] [address] from Last 3 Months or Most Recently Relevant to Health Maintenance Care Teams Railroad Brakeman Relationship Specialty Start Date End Date Aldo Hathaway RPA [address] [place] [address] PCP - General Family Medicine - Primary Care 02/20/23
--- OUTSIDE RECORDS SUMMARY | 2024-02-04 18:00 | XMS_ITS | Encounter Summary ---
Author Organization [facility] Address [address] [place] [address] Care Team Providers Care Credit Authorizer Name Role Phone Roscoe Sugey L MORTGAGE LOAN FUNDER Primary Care Provider [phone] Aldo Hathaway RPA Primary Care Provider [phone] Encounter Details Date Type Department Care Team (Late st Contact Info) Description 07/20/2020 Lab Requisition [facility] Pathology & Laboratory Medicine - [address] [id number] Outr Resulting Lab, Provider Social History Tobacco Use Types Packs/Day Years Used Date Smoking Tobacco: Never Assessed Interpersonal Safety Answer Date Record ed Physically [...] REFLEX TO HCV RNA BY PCR Routine 07/20/2020 14:17 EDT HEPATITIS B SURFACE ANTIGEN Routine 07/20/2020 14:17 EDT HIV 1/2 ANTIGEN AND ANTIBODY, 4TH GENERATION Routine 07/20/2020 14:17 EDT documented in this encounter Results * HIV 1/2 ANTIGEN AND ANTIBODY, 4TH GENERATION (07/20/2020 14:17 EDT) HIV 1 and 2 Antibody/p24 Antigen, 4th Generation Negative Negative 07/23/2020 11:56 EDT [facility] Comment: If acute HIV-1 infection is suspected in a high risk ??patient, submit plasma specimen for HIV-1 RNA quantitation test. Fourth Generation assay performed on the Siemens [employer]. Blood VENOUS BLOOD / Unknown 07/20/2020 14:17 EDT 07/20/2020 21:37 EDT Provider Outr Resulting Lab IMMUNOLOGY A ND SEROLOGY ORDERABLES Performing Organization Address City/[facility]/ZIP Co de Phone Number [facility] [address] [place] [address] * HEPATITIS B SURFACE ANTIGEN (07/20/2020 14:17 EDT) Hep B Surface Ag Negative Negative 07/23/2020 11:08 EDT [facility] Blood VENOUS BLOOD / Unknown 07/20/2020 14:17 EDT 07/20/2020 21:37 EDT Provider Outr Resulting Lab CHEMISTRY & BLOOD GAS ORDERABLES Performing Organization Address City/[facility]/ZIP Co de Phone Number [facility] [address] [place] [address] * HEPATITIS C AB W REFLEX TO HCV RNA BY PCR (07/20/2020 14:17 EDT) Hep C Antibody Negative Negative 07/23/2020 11:47 EDT [facility] Blood VENOUS BLOOD / Unknown 07/20/2020 14:17 EDT 07/20/2020 21:37 EDT Provider Outr Resulting Lab CHEMISTRY & BLOOD GAS ORDERABLES [facility] [address] [place] [address] documented in this encounter Visit Diagnoses Not on filedocumented in this encounter Care Teams Credit Authorizer Relationship Specialty Start Date End Date Sugey Malhotra FNP [address] [facility] [place] [address] PCP - General 09/26/14 02/19/23 Aldo Hathaway RPA [address] [place] [id number] PCP - General Family Medicine - Primary Care 02/20/23 documented as of this encounter
--- OUTSIDE RECORDS SUMMARY | 2024-02-04 18:00 | XMS_ITS | Encounter Summary ---
Author Organization [facility] Address [address] [place] [address] Care Team Providers Care Scientific Associate Name Role Phone Roscoe Sugey Collier ANIMAL SHELTER MANAGER Primary Care Provider [phone] Aldo Hathaway RPA Primary Care Provider [phone] Encounter Details Date Type Department Care Team (Late st Contact Info) Description 01/22/2022 Lab Requisition [facility] Pathology & Laboratory Medicine - [address] [place] [address] Encounter for other general examination Social History [...] Date/Time Associated Diagnosis Comments PAP TEST Today 01/22/2022 9:00 EDT Encounter for other general examination CHLAMYDIA/N. GONORRHOEAE AMPLIFIED NUCLEIC ACID, THINPREP Today 01/22/2022 9:00 EDT documented in this encounter Results * PAP TEST (01/22/2022 9:00 EDT) Specimens A. Cervix and/or Endocervix , ThinPrep Imaging System with Manual Evaluation 02/04/2022 15:13 [facility] Specimen Adequacy Satisfactory for Evaluation - transformation zone component present Scant due to excessive inflammation 02/04/2022 15:13 [facility] General Categorization Negative for intraepithelial lesion or malignancy 02/04/2022 15:13 [facility] Attestation . 02/04/2022 15:13 [facility] at 1512 Clinical History See below 02/05/20 15:13 [facility] Performing Lab [facility] 02/04/2022 15:13 [facility] Scanned Images 02/04/2022 15:13 [facility] Papanicolaou smear specimen (specimen) CERVIX UTERI STRUCTURE / Unknown 01/22/2022 9:00 EDT 01/23/2022 14:37 EDT Jena Ham [facility] PATHOLOGY JAIRON LAZO [facility] [address] [place] [address] * CHLAMYDIA/N. GONORRHOEAE AMPLIFIED RNA, THINPREP (01/22/2022 9:00 EDT) Neisseria gonorrhoeae Result Negative Negative 01/23/2022 15:10 EDT [facility] Chlamydia trachomatis Result Negative Negative 01/23/2022 15:10 EDT [facility] Papanicolaou smear specimen (specimen) CERVIX UTERI STRUCTURE / Unknown 01/22/2022 9:00 EDT 01/23/2022 9:07 EDT Jena Mary Jitendra [facility] MICROBIOLOGY - GENERAL ORDERABLES [facility] [address] [place] [address] documented in this encounter Visit Diagnoses Diagnosis Encounter for other general examination documented in this encounter Care Teams Scientific Associate Relationship Specialty Start Date End Date Sugey Malhotra FNP [address] [place] [address] [place] [address] PCP - General 09/26/14 02/19/23 Aldo Hathaway RPA [address] [place] [address] PCP - General Family Medicine - Primary Care 02/20/23 documented as of this encounter
--- OUTSIDE RECORDS SUMMARY | 2024-02-04 18:00 | XMS_ITS | Encounter Summary ---
Author Organization [facility] Address [address] [place] [address] Care Team Providers Care Tip Banding Machine Operator Name Role Phone Roscoe Sugey L SPORTS LEADERSHIP INSTRUCTOR Primary Care Provider [phone] Aldo Hathaway RPA Primary Care Provider [phone] Encounter Details Date Type Department Care Team (Late st Contact Info) Description 11/18/2020 Lab Requisition [facility] Pathology & Laboratory Medicine - [address] [id number] Outr Resulting Lab, Provider Social History Tobacco [...] Procedure Name Priority Date/Time Associated Diagnosis Comments FECAL BACTERIAL PATHOGENS BY PCR Routine 11/17/2020 8:30 EDT documented in this encounter Results * FECAL BACTERIAL PATHOGENS BY PCR (11/17/2020 8:30 EDT) Salmonella PCR Negative Negative 11/18/2020 22:13 EDT [facility] Shigella/Enteroin vasive E. coli Negative Negative 11/18/2020 22:13 EDT [facility] HN LAB CAMPYLOBACTER PCR Negative Negative 11/18/2020 22:13 EDT [facility] Shiga Toxin PCR Negative Negative 22:13 EDT [facility] Feces SPECIMEN FROM RECTUM / Unknown 11/17/2020 8:30 EDT 11/18/2020 16:05 EDT Provider Outr Resulting Lab MICROBIOLOGY - GENERAL ORDERABLES Performing Organization Address City/State/[facility] Co de Phone Number [facility] [address] [place] [address] documented in this encounter Visit Diagnoses Not on filedocumented in this encounter Care Teams Tip Banding Machine Operator Relationship Specialty Start Date End Date Sugey Malhotra FNP [address] [place] [address] [place] [address] PCP - General 09/26/14 02/19/23 Aldo Hathaway RPA [address] [place] [address] PCP - General Family Medicine - Primary Care 02/20/23 documented as of this encounter
--- OUTSIDE RECORDS SUMMARY | 2024-02-04 18:00 | XMS_ITS | Encounter Summary ---
Author Organization [facility] Address [address] [place] [address] Care Team Providers Care Treasury Manager Name Role Phone Sugey Malhotra AS400 PROGRAMMER Primary Care Provider [phone] Reason for Referral * Radiology Services (Routine) - Closed Specialty Diagnoses / Procedures Referred By Contac t Referred To Contact Radiology Diagnoses Midline low back pain with left-sided sciatica Procedures L SPINE 2-3 VIEWS CHG X-RAY LUMBAR SPINE 2/3 Jing Dumont MD [address] [place] [address] [facility] Radiology [address] [place] [address] Referral ID Status Reason Start Date Expiration Date Visits Re quested Visits Authorized [id number] Closed 09/27/2014 1 1 * Radiology Services (Routine) - Closed Specialty Diagnoses / Procedures Referred By Contac t Referred To Contact Radiology Diagnoses Midline low back pain with left-sided sciatica Procedures SI JOINTS 3 OR MORE VIEWS CHG X-RAY SACROILIAC JTS 3+ Jing Dumont MD [address] [place] [address] [facility] Radiology [address] [place] [address] Referral ID Status Reason Start Date Expiration Date Visits Re quested Visits Authorized [id number] Closed 09/27/2014 1 1 Reason for Visit * Reason Comments New Patient Visit neck and sciatic ner ve issues. numbness in neck. left hip issues, feet go numb also, left hand goes numb. Encounter Details Date Type Department Care Team (Latest Contact Info) Description 09/27/2014 13:00 EDT Office Visit [facility] Pediatric Rheumatology - [address] [address] Jing Allison MD [address] [place] [address],[address] [place] [address] Midline low back pain with left-sided sciatica (Primary Dx) Discharge Disposition: Auto Discharge Social History Tobacco Use Types Packs/Day Years Used Date Smoking Tobacco: Passive Smo ke Exposure - Never Smoker Sex and Gender Information Value Date Recorded Sex Assigned at Not on file Gender Identity Not on file Sexual Orientation Not on file documented as of this encounter Last Filed Vital Signs Vital Sign Reading [...] Body Mass Index 27.81 09/27/2014 1353 EDT Body Mass Index Percentile 92.16% 09/27/2014 135 3 EDT Growth Chart: CDC (Girls, 2- 20 Years) documented in this encounter Functional Status Functional Status Response [...] as of this encounter Discharge Diagnoses Diagnosis 724.3 SCIATICA[ICD-9-CM] 724.5 BACKACHE NOS[ICD-9-CM] 729.1 MYALGIA AND MYOSITIS NOS[ICD-9-CM] documented in this encounter Ordered Prescriptions Prescription Sig Dispensed Refills Start Date End Da te naproxen (NAPROSYN) 500 mg tablet Take 1 Tab by mouth 2 times daily with breakfast and dinner 60 Tab 11 09/27/2014 documented in this encounter Discharge Disposition Disposition Code Departure Means Destination Auto Discharge documented in this encounter Progress Notes * Jing Allison S - 09/27/2014 1618 EDT Pediatric Rheumatology New Patient Visit 09/27/2014 Reason for referral: New Patient Visit HPI: Lo is seen for the first time in pediatric rheumatology clinic at the request of her PCP: Sugey Malhotra NP. She is referred here for evaluation of some symptoms over the past 3-5 months she has had including cervical spine pain, numbness of the left hand, midline back pain with radiation over left buttock to lateral thigh associated with numbness of the left foot. Her hand and foot neverchange color or look swollen. She has trouble sitting in the car today due to left hip pain per mom. She does continue with her usual activities despite these symptoms. 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 Pain occurs with activity and is not a problem when trying to sleep or first thing in the AM. She has had neck xrays which were reportedly normal. She has been referred to PT on three occasions with not benefit in her symptoms. Labs have included a normal CPK, normal chemistries, normal CBC, negative U/A and ESR of 3. She takes ibuprofen without much benefit. Only other meds are BCPs. She has menstrual abnormalities chronically managed by her PCP. Lo has experienced: joint pain, some headaches with history of concussion several years ago andweight gain and not experienced: alopecia, decrease appetite, chest pain, cough, eye symptoms, fatigue, fevers, GI symptoms, joint swelling, morning stiffness, oral ulcers, rash, Raynaud's Syndrome and shortness of breath. Immunizations are up-to-date. No outpatient prescriptions prior to visit. No facility-administered medications prior to visit. ROS: System Negative Positive Comments Constitutional X Eyes X ENT X Cardiovascular X Pulmonary X Gastrointestinal X Genitourinary X Muscoloskeletal x See HPI Integument/breast X Neurological x Describes sciatica and numbness in left hand and foot Psychiatric X Endocrine x Menstrual irregularities, see HPI Hematologic/Lymph X Allergic/Immunologic X Allergies include: Review of patient's allergies indicates no known allergies. Past Medical History Diagnosis Date ??? Headache ??? Joint pain Family History Problem Relation Age of Onset ??? * Brother epilepsy ??? Psoriasis Maternal Aunt Past Surgical History Procedure Laterality Date ??? Tympanostomy tube placement Living Conditions ??? Lives with Mother primarily (sees father regularly) Weekdays ??? Education Grade 11 ??? Educational Aides IEP Safety and Environmental Exposures History Substance Use Topics ??? Smoking status: Passive Smoke Exposure - Never Smoker ??? Smokeless tobacco: Not on file ??? Alcohol Use: Not on file History Drug Use Not on file History Sexual Activity ??? Sexual Activity: Not on file History Social History Narrative LABS: No results found for any previous visit. Physical Examination: BP 109/65 Pulse 48 Temp(Src) 36.8 ??C (98.2 ??F) (Tympanic) Ht 157.4 cm (61.97) Wt 68.9 kg(151 lb 14.4 oz) BMI 27.81 kg/m2 General: alert, cooperative and no acute distress Head/Neck: No adenopathy and normal thyroid Eyes: FAITH and no synechiae Nose: patent and no erosions Mouth: no oral ulcers and palate clear Nodes: No axillary, inguinal adenopathy or tendernes Chest: lungs clear, no wheezes and no rales CVS: RRR, no murmur, normal pulses and no rub Abdomen: soft, , normal bowel sounds, no hepatosplenomegaly and no masses Skin: No rash noted Neuro: Normal tone, reflexes, and strength except for some minimal weakness left hip flexors with normal strength hip abductors bilaterally MSK: all joints have FROM, no pain on ROM, no swelling or limitation of range noted, gait normal, leg lengths are equal , jaw is symmetric, FROM of the cervical spine and back is straight, ? some SI joint tenderness on the left, no groin tenderness or lateral hip tenderness. Impression/Plan: History suggestive of sciatica or sacroiliitis although history most suggestive of mechanical rather than inflammatory back pain. Will image LS spine and SI joint. May warrant MRI, will discuss with PCP as well regarding further management. May warrant referral to spine center rather than to rheumatology. I spent a total of 60 minutes in face to face time with this patient and 40 minutes of that time was spent in counseling and coordination of care as described in the progress note. Jing Allison MD 09/27/2014 16:18 documented in this encounter Plan of Treatment Not on file documented as of this encounter Procedures Procedure Name Priority Date/Time Associated Diagnosis Comments SI JOINTS 3 OR MORE VIEWS Routine 09/27/2014 14:55 EDT Midline low back pain with left-sided sciatica L SPINE 2-3 VIEWS Routine 09/27/2014 14: 55 EDT Midline low back pain with left-sided sciatica documented in this encounter Results * L SPINE 2-3 VIEWS (09/27/2014 14:55 EDT) Anatomical Region Laterality Modality Other 09/27/2014 14:5 5 EDT 09/27/2014 17:30 EDT Narrative 09/27/2014 17:30 EDT SI JOINTS 3 OR MORE VIEWS, L SPINE 2-3 VIEWS ??09/27/2014 2:55 PM Clinical History/Comments: ?? 724.5-Jyrkbgcw-ZLJ-9-CM; left buttock pain. Findings: AP and lateral view of the lumbar spine and views of the SI joints are obtained. Bony mineralization is normal. Alignment and position are anatomic. Vertebral body height and disc spaces appear preserved. There is straightening of the lumbar spine without focal bony abnormality evident. Incidentally seen is spina bifida occulta at S1. SI joints and pubic symphysis are unremarkable. Impression: Lumbar spine and SI joints, no abnormalities identified. Procedure Note Dottie Arreaga MD - 09/27/2014 SI JOINTS 3 OR MORE VIEWS, L SPINE 2-3 VIEWS 09/27/2014 2:55 PM Clinical History/Comments: 724.8-Qbbknugw-QGS-9-CM; left buttock pain. Findings: AP and lateral view of the lumbar spine and views of the SI joints are obtained. Bony mineralization is normal. Alignment and position are anatomic. Vertebral body height and disc spaces appear preserved. There is straightening of the lumbar spine without focal bony abnormality evident. Incidentally seen is spina bifida occulta at S1. SI joints and pubic symphysis are unremarkable. Impression: Lumbar spine and SI joints, no abnormalities identified. Jing Allison MD IMG DIAGNOSTIC IMAG ING ORDERABLES * SI JOINTS 3 OR MORE VIEWS (09/27/2014 14:55 EDT) Anatomical Region Laterality Modality Other 09/27/2014 14:5 5 EDT 09/27/2014 17:30 EDT Narrative 09/27/2014 17:30 EDT SI JOINTS 3 OR MORE VIEWS, L SPINE 2-3 VIEWS ??09/27/2014 2:55 PM Clinical History/Comments: ?? 724.7-Kcgyebsi-QLV-9-CM; left buttock pain. Findings: AP and lateral view of the lumbar spine and views of the SI joints are obtained. Bony mineralization is normal. Alignment and position are anatomic. Vertebral body height and disc spaces appear preserved. There is straightening of the lumbar spine without focal bony abnormality evident. Incidentally seen is spina bifida occulta at S1. SI joints and pubic symphysis are unremarkable. Impression: Lumbar spine and SI joints, no abnormalities identified. Procedure Note Dottie Arreaga MD - 09/27/2014 SI JOINTS 3 OR MORE VIEWS, L SPINE 2-3 VIEWS 09/27/2014 2:55 PM Clinical History/Comments: 724.7-Pfxemack-ONQ-9-CM; left buttock pain. Findings: AP and lateral view of the lumbar spine and views of the SI joints are obtained. Bony mineralization is normal. Alignment and position are anatomic. Vertebral body height and disc spaces appear preserved. There is straightening of the lumbar spine without focal bony abnormality evident. Incidentally seen is spina bifida occulta at S1. SI joints and pubic symphysis are unremarkable. Impression: Lumbar spine and SI joints, no abnormalities identified. Jing Allison MD IMG DIAGNOSTIC IMAG ING ORDERABLES documented in this encounter Visit Diagnoses Diagnosis Midline low back pain with left-sided sciatica- Primary documented in this encounter Historical Medications * This list may reflect changes made after this encounter. Medication Sig Dispensed Refills Start Date End Date Miscellaneous Medication - See Admin Instructions control to control heavy periods. added in this encounter Care Teams Treasury Manager Relationship Specialty Start Date End Date Sugey Malhotra FNP [address] [place] [address] [place] [address] PCP - General 09/26/14 02/19/23 documented as of this encounter
--- OUTSIDE RECORDS SUMMARY | 2024-02-04 18:00 | XMS_ITS | Encounter Summary ---
Author Organization [facility] Address [address] [place] [address] Care Team Providers Care Loader Magazine Grinder Name Role Phone Sugey Malhotra PARKING ENFORCER Primary Care Provider Encounter Details Date Type Department Care Team (Latest Contact Info) Description 05/30/2015 7:20 EST - 05/30/2015 23:59 EST Hospital Encounter [address] [address] Unknown, Provider, MD Discharge Disposition: Home or Self Care Social [...] No 09/27/2014 documented as of this encounter Medications at Time of Discharge Medication Sig Dispensed Refills Start Date End Date Miscellaneous Medication - See Admin Instructions control to control heavy periods. naproxen (NAPROSYN) 500 mg tablet Take 1 Tab by mouth 2 times daily with breakfast and dinner 60 Tab 11 09/27/2014 documented as of this encounter Discharge Disposition Disposition Code Departure Means Destination Home or Self Long-Term documented in this encounter Plan of Treatment Not on file documented as of this encounter Visit Diagnoses Not on filedocumented in this encounter Care Teams Loader Magazine Grinder Relationship Specialty Start Date End Date Sugey Malhotra FNP [address] [place] [address] [place] [address] PCP - General 09/26/14 02/19/23 documented as of this encounter
--- OUTSIDE RECORDS SUMMARY | 2024-02-04 18:00 | XMS_ITS | Encounter Summary ---
Author Organization [facility] Address [address] [place] [address] Care Team Providers Care Management Instructor Name Role Phone Roscoe Sugey L REMELT WORKER Primary Care Provider [phone] Aldo Hathaway RPA Primary Care Provider [phone] Encounter Details Date Type Department Care Team (Late st Contact Info) Description 02/01/2021 Lab Requisition [facility] Pathology & Laboratory Medicine - [address] [address] Jena Montilla, RN [facility] [address] [place] [address] Encounter for other general examination Social History [...] Date/Time Associated Diagnosis Comments PAP TEST Today 01/31/2021 3:15 EDT Encounter for other general examination documented in this encounter Results * PAP TEST (01/31/2021 3:15 EDT) Specimens A. Cervix and/or Endocervix , ThinPrep Imaging System with Manual Evaluation 02/07/2021 15:18 [facility] Specimen Adequacy Satisfactory for Evaluation - transformation zone component present 02/07/2021 15:18 [facility] General Categorization Epithelial Cell Abnormality 02/07/2021 15:18 [facility] Descriptive Diagnosis Squamous Cell Abnormality - Atypical squamous cells, undetermined significance (ASC-US). 02/07/2021 15:18 [facility] Educational Comments [facility] recommends following ASCCP's 2012 Updated Consensus Guidelines for the Management of Abnormal Cervical Cancer Screening Tests and Cancer Precursors (JLGTD, 2013; 17(5):S1-S27). Consensus guidelines are available online at www.asccp.org. 02/07/2021 15:18 [facility] Attestation By the signature below, the attending physician certifies that they have personally conducted a gross and/or microscopic examination of the described specimens and rendered or confirmed the above diagnosis. 02/07/2021 15:18 [facility] at 1518 Clinical History See below 02/08/20 15:18 [facility] Performing Lab [facility] 02/07/2021 15:18 [facility] Scanned Images 02/07/2021 15:18 [facility] Papanicolaou smear specimen (specimen) CERVIX UTERI STRUCTURE / Unknown 01/31/2021 3:15 EDT 02/01/2021 9:27 EDT Jena Montilla APN PATHOLOGY ORDERAB LES [facility] [address] [place] [address] documented in this encounter Visit Diagnoses Diagnosis Encounter for other general examination documented in this encounter Care Teams Management Instructor Relationship Specialty Start Date End Date Sugey Malhotra FNP [address] [place] [address] [place] [address] PCP - General 09/26/14 02/19/23 Aldo Hathaway RPA [address] [place] [address] PCP - General Family Medicine - Primary Care 02/20/23 documented as of this encounter
--- OUTSIDE RECORDS SUMMARY | 2024-02-04 18:00 | XMS_ITS | Encounter Summary ---
Author Organization [facility] Address [address] [place] [address] Care Team Providers Care Driver Messenger Name Role Phone Duke Malhotra THERAPIST RRT Primary Care Provider [phone] Encounter Details Date Type Department Care Team (Late st Contact Info) Description 05/30/2015 Results Only [facility] Urology - [address] [address] Oniel Monroe MD [address] [place] [phone] Social History Tobacco Use Types Packs/Day Years [...] Procedure Name Priority Date/Time Associated Diagnosis Comments CYTOPATHOLOGY Routine 05/30/2015 0:00 EST documented in this encounter Results * CYTOPATHOLOGY (05/30/2015 0:00 EST) Pathology Report: CYTOPATHOLOGY REPORT Reports generated via electronic interface contain original data; however they are lacking the format of the original report. Caution should be taken when reading/interpret ing unformatted reports. Name: ? LO ZAIDI ? Accession #: ? [id number] : ? 1995 (Age: 19) ??F ?Collect Date: ? 05/30/2015 Location: ? [facility] ? Receive Date: ? 05/31/2015 Provider: ? ONIEL MONROE MD Copy to: ?[facility] ? CYTOLOGIC DIAGNOSIS: URINE, BARBOTAGE, CYTOLOGIC EVALUATION: - No malignant cells identified. - Benign urothelial cell fragments. Document reviewed and electronically signed by: ? CHESTER ROSAS MD [facility] Report Date: ??05/31/2015 15:09 By the signature above, the attending physician certifies that he/she has personally conducted a gross and/or microscopic examination of the described specimens and rendered or confirmed the above diagnosis. Specimen Type: ? Urine, Barbotage Clinical History: ? Hematuria ? Gross Description: ? 20 cc of clear colorless fluid were received and processed by selective cellular enhancement technique. ? End of Report [facility] 05/30/2015 05/31/2015 7:2 2 EST Oniel Monroe MD [facility] [address] [place] [address] documented in this encounter Visit Diagnoses Not on filedocumented in this encounter Care Teams Driver Messenger Relationship Specialty Start Date End Date Duke Malhotra FNP [address] [place] [address] [place] [address] PCP - General 09/26/14 02/19/23 documented as of this encounter
== END 2024-02-04 17:59 | disposition home or self-care (01) ==
LOC: LBN 17:58
PROVIDERS: PCP Nurse Practitioner Family; Visit Provider Obstetrics & Gynecology
DX: Z01.419 Encounter for gynecological examination (general) (routine) without abnormal findings (principal); R10.2 Pelvic and perineal pain
CPT/HCPCS: 88142

== ENCOUNTER 2024-07-26 16:23 | Outpatient (CLI) | payer BC, SELFPAY ==
[2024-07-26 16:46] LABS: Abs Immature Grans 0.04 10^3/uL (0.0-0.06); Absolute Basophil Count 0.04 10^3/uL (0.0-0.2); Absolute Eosinophil Count 0.15 10^3/uL (0.0-0.7); Absolute Lymphocyte Count 2.26 10^3/uL (1.2-3.4); Absolute Monocyte Count 0.62 10^3/uL (0.1-0.8); Basophils % 0.3 %; Eosinophils % 1.2 %; HCT 38.1 % (36.0-46.0); HGB 12.9 g/dL (11.2-15.7); Immature Grans % 0.3 %; Lymphocytes % 18.5 %; MCH 29.7 pg (27.0-33.0); MCHC 33.9 % (32.0-36.0); MCV 88 fL (80-95); Monocytes % 5.1 %; Neutrophils % 74.6 %; Platelet Count 256 10^3/uL (130-400); RBC 4.35 10^6/uL (3.93-5.22); RDW 12.9 % (11.7-14.6); RDW-SD 40.7 fL; WBC 12.21 10^3/uL (4.4-10.8)
[2024-07-26 16:53] LABS: Absolute Neutrophil Count 9.11 10^3/uL (1.2-6.7)
[2024-07-26 17:08] LABS: *AMPHETAMINES SCREEN URINE Negative (Negative); *BARBITURATES SCREEN URINE Negative (Negative); *BENZODIAZEPINES SCREEN URINE Negative (Negative); Cannabinoids THC Negative (Negative); Cocaine Screen,Urine Negative (Negative); METHADONE URINE SCREEN Negative (Negative); OPIATES URINE SCREEN Negative (Negative)
[2024-07-26 17:15] LABS: ALT 22 U/L (14-59); AST 12 U/L (15-37); Albumin 3.5 g/dL (3.4-5.0); Alkaline Phosphatase 67 U/L (46-116); Anion Gap 12.6 mmol/L (3-11); BUN 6 mg/dL (7-18); Bilirubin, Total 0.4 mg/dL (0.2-1.0); CO2 22.4 mmol/L (21.0-32.0); CREATININE 0.6 mg/dL (0.55-1.02); Calcium 8.6 mg/dL (8.5-10.1); Chloride 103 mmol/L (98-107); Estimated GFR 126.09 (mL/min/1.73m2); Ferritin 41 ng/mL (8-252); Glucose 94 mg/dL (74-106); Potassium 3.7 mmol/L (3.5-5.1); Sodium 138 mmol/L (136-145); Total Protein 7.3 g/dL (6.4-8.2)
[2024-07-26 17:19] LABS: Tricyclic Antidepressants Negative (Negative)
[2024-07-26 17:27] LABS: Iron 45 ug/dL (50-170); Total Iron Binding Capacity 347 ug/dL (250-450); Transferrin Sat 13 % (15-50)
[2024-07-26 17:41] LABS: FREE T4 1.09 ng/dL (0.76-1.46)
[2024-07-28 09:07] LABS: Hepatitis B Surface Ag Negative (Negative)
[2024-07-28 09:50] LABS: Rubella IgG Ab (UVM) Negative (See Note)
[2024-07-28 09:53] LABS: HIV-1/2 Ag & Ab Screen Negative (Negative); Varicella IgG Antibody Positive (See Note)
[2024-07-28 10:03] LABS: Hepatitis C Ab w Rflx HCV PCR Negative (Negative)
[2024-07-29 19:17] LABS: Syphilis IgG w/Reflex Nonreactive (Nonreactive)
[2024-08-07 02:04] LABS: Specimen WB Whole Blood
[2024-08-08 10:31] LABS: Result Summary POSITIVE CARRIER (Negative)
== END 2024-07-26 16:24 | disposition home or self-care (01) ==
LOC: LBO 16:23
PROVIDERS: PCP Nurse Practitioner Family; Visit Provider Obstetrics & Gynecology
DX: Z34.91 Encounter for supervision of normal pregnancy, unspecified, first trimester (principal); R55 Syncope and collapse; Z86.2 Personal history of diseases of the blood and blood-forming organs and certain disorders involving the immune mechanism; N93.9 Abnormal uterine and vaginal bleeding, unspecified
CPT/HCPCS: 36415; 80053; 80307; 81329; 86787; 86803; 86850; 86900; 86901; 87340; 87389; 82728; 83540; 83550; 84439; 84443; 85025; 86762; 86780; 87086

== ENCOUNTER 2024-08-02 15:51 | Outpatient (REF) | payer BC, SELFPAY ==
[2024-08-04 11:18] LABS: Chlamydia Result Negative (Negative); GC Result Negative (Negative)
== END 2024-08-02 15:52 | disposition home or self-care (01) ==
LOC: LBN 15:51
PROVIDERS: PCP Nurse Practitioner Family; Visit Provider Advanced Practice Midwife
DX: Z34.91 Encounter for supervision of normal pregnancy, unspecified, first trimester (principal)
CPT/HCPCS: 87491; 87591

== ENCOUNTER 2024-08-17 16:51 | Outpatient (CLI) | payer BC, SELFPAY ==
[2024-08-17 17:02] LABS: Panorama Kit Sent via Fed Ex
[2024-08-17 17:35] LABS: Hemoglobin A1C 5.2 % (<5.7)
[2024-08-17 18:32] LABS: TSH (W/Ref FT4) 0.18 uIU/mL (0.36-3.74)
[2024-08-17 18:48] LABS: FREE T4 1.14 ng/dL (0.76-1.46)
== END 2024-08-17 16:52 | disposition home or self-care (01) ==
LOC: LBO 16:52
PROVIDERS: Obstetrics & Gynecology; PCP Nurse Practitioner Family; Visit Provider Advanced Practice Midwife
DX: Z34.91 Encounter for supervision of normal pregnancy, unspecified, first trimester (principal)
CPT/HCPCS: 36415; 83036; 84439; 84443

== ENCOUNTER 2024-11-18 21:45 | Outpatient (CLI) | payer BC, SELFPAY ==
[2024-11-18 22:55] VITALS: BP 112/64; PULSE 60; TEMP 36.6
[2024-11-18 23:16] LABS: Glucose Negative (Negative)
[2024-11-19 00:21] LABS: HCT 32.0 % (36.0-46.0); HGB 10.9 g/dL (11.2-15.7); MCH 29.5 pg (27.0-33.0); MCHC 34.1 % (32.0-36.0); MCV 87 fL (80-95); MPV 9.8 fL (8.0-11.0); Platelet Count 224 10^3/uL (130-400); RBC 3.70 10^6/uL (3.93-5.22); RDW 13.2 % (11.7-14.6); RDW-SD 41.1 fL; WBC 12.68 10^3/uL (4.4-10.8)
[2024-11-19 00:30] VITALS: BP 112/64; PULSE 60; TEMP 36.6
--- NOTE | 2024-11-19 00:30 | W.OBNST ---
Date of service: 11/19/24 Time of Service: 00:44 NST Evaluation Reason for NST Reasons for Nonstress Test: OTHER, SEE COMMENT Reason for NST Other: Flank pain Gestational Age Gestational Age in Weeks and Days: 27 Weeks and 2Days Test and Monitor Explained Test/Monitor Explained: Test Explained and Monitor Explained Vital Signs Blood Pressure: 112/64 Pulse: 60 Temperature: 97.9 F Urine Results Urine Protein: Negative Urine Ketones: Negative Urine Glucose: Negative Urine Blood: Negative NST Information Time on Monitor: 22:53 Date off Monitor: 11/18/24 Time off Monitor: 23:22 NST Interventions: None Contraction Frequency: 0 NST Evaluation Patient States Movement: Present FHR Baseline: 135 Variability: Moderate 6-25 bpm Accelerations: 15x15 Decelerations: None NST Results: Reactive Note Ultrasound Done: N/A. NST Note Note: 29 yo ( x1) presents at 27 3/7 as dated by 8 wk US (LAVERN 02/15/2025) for concerns surrounding flank pain since Thursday, headaches since her last PNV, abdominal sensitivity, intermittent nausea, light-headedness, and fatigue. Her status is very reassuring and there is no evidence of labor (SVE cl/th/high). Over the course of her evaluation, Ms. Zaidi requested STI screening statign her and her FOB were having relationship concerns, again. She denied any concerns for harm. She cites concerns surrounding worsening, rage, and anxiety. She has discontinued her counseling her and prefers counselors she has at work. Currently on 75 mg Setraline daily. Atarax 25 mg TID prn added this evening. Of note, UA was negative. Wet mount was also completely negative. CBC identified mild anemia and she was initiated on iron. She will follow up at her PNV which is currently scheduled for 12/02. NST Reviewed and Verified by: Cordelia Morales
[2024-11-21 12:08] LABS: Chlamydia Result Negative (Negative); GC Result Negative (Negative)
== END 2024-11-19 00:40 | disposition home or self-care (01) ==
LOC: BCD 21:57 → OBS 22:46
PROVIDERS: PCP Nurse Practitioner Family; Visit Provider Obstetrics & Gynecology
DX: Z3A.27 27 weeks gestation of pregnancy (principal); O99.891 Other specified diseases and conditions complicating pregnancy; R10.10 Upper abdominal pain, unspecified
CPT/HCPCS: 85027; 87491; 87591; 59025; 81003

== ENCOUNTER 2024-12-02 05:15 | Outpatient (CLI) | payer BC, SELFPAY ==
[2024-12-02 16:48] LABS: Abs Immature Grans 0.05 10^3/uL (0.0-0.06); HCT 31.1 % (36.0-46.0); HGB 10.7 g/dL (11.2-15.7); Immature Grans % 0.5 %; MCH 29.2 pg (27.0-33.0); MCHC 34.4 % (32.0-36.0); MCV 85 fL (80-95); MPV 9.7 fL (8.0-11.0); Platelet Count 243 10^3/uL (130-400); RBC 3.67 10^6/uL (3.93-5.22); RDW 13.4 % (11.7-14.6); RDW-SD 41.4 fL; WBC 10.50 10^3/uL (4.4-10.8)
[2024-12-02 16:58] LABS: Glucose,1 Hr (Glucola) 129 mg/dL (80-140)
== END 2024-12-02 05:16 | disposition home or self-care (01) ==
LOC: LBO 05:15
PROVIDERS: PCP Nurse Practitioner Family; Visit Provider Obstetrics & Gynecology
DX: Z34.93 Encounter for supervision of normal pregnancy, unspecified, third trimester (principal)
CPT/HCPCS: 36415; 82950; 85025

== ENCOUNTER 2025-01-09 02:02 | Outpatient (CLI) | payer BC, SELFPAY ==
--- NOTE | 2025-01-09 05:45 | DI.US_ITS ---
Exam(s) US OB DEE WEIGHT EXAM: US OB DEE WEIGHT CLINICAL HISTORY: fundal heights less than dates,SMALL FOR GEST AGE,[id number]. TECHNIQUE: Transabdominal obstetrical ultrasound performed. COMPARISON: US US OB 2-3 TRIMESTER from 09/28/2024 US US OB F/U FACIAL/LVOT/RVOT from 10/07/2024 FINDINGS:: Number of fetuses: 1 position: CEPHALIC, spine posterior. Placental location: ANTERIOR. No evidence of previa. BIOMETRIC DATA: BPD: 9.02cm, 36weeks 4days HC: 32.57cm, 36weeks 6days AC: 30.86cm, 34weeks 6days FL: 6.51cm, 33weeks 4days EFW: 2,533.58g, 5lb 10.7oz, 50.1% Composite Age: 35weeks 3days LAVERN: 02/10/2025 Heart Rate: 118bpm Amniotic fluid index: 10.19cm, low normal range. IMPRESSION: size and weight are within the expected range. DEE at low normal range. DATA REPOSITORY:
== END 2025-01-09 02:22 ==
LOC: DI 02:02
PROVIDERS: PCP Nurse Practitioner Family; Visit Provider Obstetrics & Gynecology
DX: O36.5931 Maternal care for other known or suspected poor fetal growth, third trimester, fetus 1 (principal); Z3A.36 36 weeks gestation of pregnancy
CPT/HCPCS: 76816

== ENCOUNTER 2025-01-19 13:40 | Outpatient (REF) | payer BC, SELFPAY | END 2025-01-19 13:41 | disposition home or self-care (01) | LOC: LBN 13:40 | PROVIDERS: PCP Nurse Practitioner Family; Visit Provider Obstetrics & Gynecology | DX: Z34.93 Encounter for supervision of normal pregnancy, unspecified, third trimester (principal) | CPT/HCPCS: 87081 ==

== ENCOUNTER 2025-01-28 17:49 | Inpatient (IN) | payer BC, SELFPAY ==
[2025-01-28 15:58] VITALS: BP 121/58; PULSE 66; TEMP 36.9
[2025-01-28 16:44] VITALS: BP 121/58; PULSE 66
[2025-01-28 18:24] LABS: Abs Immature Grans 0.07 10^3/uL (0.0-0.06); HCT 34.2 % (36.0-46.0); HGB 10.8 g/dL (11.2-15.7); Immature Grans % 0.6 %; MCH 26.1 pg (27.0-33.0); MCHC 31.6 % (32.0-36.0); MCV 83 fL (80-95); MPV 10.0 fL (8.0-11.0); Platelet Count 304 10^3/uL (130-400); RBC 4.14 10^6/uL (3.93-5.22); RDW 13.4 % (11.7-14.6); RDW-SD 39.9 fL; WBC 12.61 10^3/uL (4.4-10.8)
[2025-01-28 18:48] VITALS: BP 125/84; PULSE 74
--- NOTE | 2025-01-28 19:58 | HPE_ITS ---
Date of service: 01/28/25 Time of Service: 19:58 Assessment and Plan Assessment and plan (1) : Status: Acute (2) Normal labor: Status: Acute Assessment and plan: Patient is a 2 para 1 at 37 weeks and 3 days who presented in early labor and subsequently had spontaneous rupture of membranes. She has a favorable with Villa score at 10. She is padmini irregularly. She is group B strep negative. She has had a normal CBC with a white count of 12.6, hemoglobin 10.8, platelets are normal at 304 and her type and screen shows a blood type that is O+ with antibody screen negative. At this point, her contractions are somewhat irregular. She does request epidural anesthesia for pain control when her labor progresses. She is comfortable with Pitocin augmentation. At this point, she will have a light dinner, ambulate, and start Pitocin when ready. All questions were answered. Risks were reviewed. OB-HPI Labor/Delivery History of Present Illness Reason for Visit: Term ROM Chief Complaint: Uterine Contractions; Suspected Rupture of Membranes , Associated Signs and Symptoms of Suspected ROM: Gush of fluid, nitrazine positive . LAVERN Calculator Estimated Delivery Date Method Current WG Current Estimate 02/15/25 LMP (Uncertain) 37w 3d Other Estimates 02/15/25 Ultrasound #1 37w 3d Comments: Patient called this afternoon with increasing uterine activity and pelvic pressure. She was seen for evaluation and noted to be approximately 3 cm. Shortly thereafter, she had spontaneous rupture of membranes at approximately 6 PM. Nitrazine positive. Scant leaking of fluid at this point. Baby's been moving and active. She has no signs or symptoms of preeclampsia. History of Present Expected Delivery Route/Plan - FOB/boyfriend - Greg Enriquez (first child together, has a 8 yo daughter) Rubella non-immune, offer MMR Specific Issues/Plan 1. 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 BMI 32, XmoP3t=7.2 3. TSH rechecked at initial=0.18, Ft=1.14 (nml) 4. Depression, stopped sertraline when learned of preg, plans restart at 36 wks * Sertraline 75 mg qd, Atarax 25 mg TID prn (added 11/19) - Consider Buspar if Atarax not effective * Counseling services via work 5. 5P screen+ d/t fam hx, initial UDS=neg, 28 wk UDS____ 6. Pt's 3 yo son with autism spectrum disorder 7. SMA carrier. Panorama with sex 08/17/2024 Informed Consent Informed Consent: Augmentation of Labor Review of Systems All systems reviewed & are unremarkable except as noted in HPI and below Eyes Eyes: Reports as per HPI and Reports system reviewed and no additional complaints, except as documented ENT Ears, Nose, Mouth, and Throat: Reports system reviewed and no additional complaints, except as documented and Reports as per HPI Cardiovascular Cardiovascular: Reports system reviewed and no additional complaints, except as documented, Denies chest pain and Denies irregular heart rhythm Respiratory Respiratory: Reports system reviewed and no additional complaints, except as documented, Denies chest congestion and Denies cough Gastrointestinal Gastrointestinal: Reports system reviewed and no additional complaints, except as documented Genitourinary Genitourinary: Reports system reviewed and no additional complaints, except as documented Neurologic Neurologic: Reports system reviewed and no additional complaints, except as documented PFSH All Active Problems (Updated 01/28/25 @ 20:02 by Portia Giraldo DO) Normal labor (Acute) Adjustment disorder with anxiety (Acute) Family history of thyroid disease in mother (Acute) History of depression (Acute) (Acute) Rubella non-immune status, antepartum (Acute) Back pain affecting (Acute) Incontinence of urine in female (Acute) since childhood Medical History (Updated 01/28/25 @ 20:02 by Portia Giraldo DO) Pelvic pain Urinary frequency Cystic fibrosis carrier Vaginal discharge Atypical squamous cells of undetermined significance (ASC-US) on cervical Pap smear Repeat pap Jan 19: NIL noted 02/17 --> repeat testing 02/18 wnl. Susceptible varicella Diarrhea Surgical History H/O wisdom tooth extraction Social History Smoking/Tobacco Use Status: Former Tobacco Use Tobacco: How many years used: 3 Quit status: has quit before Smoking risk assessment performed?: Yes Alcohol Intake: never Drug use: Never Substance use type: does not use Housing: house Do you feel safe at home: Yes Do you feel safe in your relationship?: Yes History History 2 Para 1 Hx # Term Pregnancies 1 Multiple births 0 Hx # Pregnancies 0 Ectopic pregnancies 0 AB induced 0 Hx Number of Living Children 1 AB spontaneous 0 Past Pregnancies Del. Date GA/Weeks # Preg Succ Route Wgt Sex Labor Lgth Anesth esia Location Prov Complic 12/15/20 39 No vaginal 7 lb 0.524 oz Male Meagan Garcia CNM Meds Allergies and Home Medications Allergies Allergy/AdvReac Type Severity Reaction Status Date / Time Latex, Natural Rubber AdvReac Mild Hives Unverified 01/26/25 13:25 Home Medications Medication Instructions Recorded Confirmed Type vits no.126-ferrous fum tab PO 06/28/2401/26 History 28 mg iron-folic acid 800 mcg tablet (Classic ) sertraline 25 mg tablet 75 mg (3 x 25 mg) PO DAILY # 180 11/15/24 01/26/25 Rx tabs ferrous sulfate 325 mg (65 mg 325 mg PO Q OTHER DAY 90 days #45 11/19/24 01/26/25 Rx iron) tablet (FeroSul) tabs [id number] 1 cap PO Q6H PRN mary ann n #10 caps 11/21/24 01/26/25 Rx 50 mg-300 mg-40 mg capsule (Fioricet) omeprazole 20 mg capsule,delayed 20 mg PO BID #60 caps 12/02/24 01/26/25 Rx release hydroxyzine HCl 25 mg tablet 25 mg PO TID PRN itching 90 days 01/12/25 01/26/25 Rx #30 tabs Exam Physical Exam Vital signs: Pulse BP 74 125/84 01/28/25 18:48 01/28/25 18:48 Vital Signs Reviewed: Yes Constitutional Constitutional: no acute distress Detailed Labor and Delivery Exam Dilation: 3 Effacement (%): 70 station: -1 Position: OA Cervix position: anterior Consistency: soft Villa Score: Cervical Points Exam 0 1 2 3 Dilation Closed 1-2cm 3-4 cm 5-6cm Effacement 0-30% 40-50% 60-70% 80% Consistency Firm Medium Soft Station -3 -2 -1,0 +1,+2 Position Posterior Mid Anterior VILLA Score(Cervical Ripeness Score): 10 Amniotic Membrane Status: Ruptured Rupture Method: Spontaneous Amniotic Fluid: Clear Contraction Frequency(min): 5 Contraction Duration(sec): 60 Contraction Intensity: Moderate Fetus A Heart Rate Baseline: 140 Monitor Accelerations: 15 X 15 Monitor Decelerations: None Variability: Moderate (6-25 BPM) Presentation: Cephalic Est. Weight: 7 lb Date of Membrane Rupture: 01/28/25 Time of Membrane Rupture: 17:42 HEENT Exam HEENT Exam: Normal Neck Exam Neck Exam: Normal Chest/Brest/Axilla Exam Chest Exam: Normal Breast Exam Breast Exam: Normal Respiratory Exam Respiratory Exam: Normal Cardiovascular Exam Cardiovascular Exam: Normal Abdominal Exam Abdominal Exam: Normal Neurological Exam Neurological Exam: Normal Results Results Group Beta Strep: Negative Abnormal Lab Findings: Abnormal Labs 01/28/25 18:15 WBC 12.61 H Hgb 10.8 L Hct 34.2 L MCH 26.1 L MCHC 31.6 L Absolute Neutrophils 10.42 H Risk Assessment Risk for Shoulder Dystocia Historical/Initial OB: POSITIVE FOR: Pre- BMI>30; NEGATIVE FOR: Pelvic Abnormality, Previous Shoulder Dystocia or Previous Macrosomia Increased Risk?: No Date/Initial: KJ 01/28/2025 Delivery Plan @ 36wks: Anticipate vaginal Risk for Pre-Eclampsia Date Initiated/Initials: not indicated, JK Yes, if one or more: NEGATIVE FOR: Hx Pre-E/Gest HTN, Chronic HTN, Multiple Gestation, Pre-gestational DM, Renal Disease, Systemic Lupus or APA Syndrome Yes, if 2 or more: POSITIVE FOR: BMI>30; NEGATIVE FOR: Nulliparity, Age>= 35 yrs, >10yr btwn pregnancies, ethinicty, Mother/Sister w/ Pre-E or Previous IUGR Risk for Post- Hemorrhage Initial: NEGATIVE FOR: Multiple Gestation, Previous PPH, Known Clotting Deficiency, Grand Multiparity or Anticoagulation At Risk?: No Counseled re: Active Management: Yes Date/Initials: KJ 01/28/2025 Risks Reviewed Risks Reviewed Upon Admission: Yes
--- NOTE | 2025-01-28 19:58 | W.ANESPRE ---
General Info Date of Service Date Performed: 01/29/25 Height: 5 ft 2 in Weight: 85.729 kg Body Mass Index (BMI): 34.5 Meds Allergies and Home Medications Allergies Allergy/AdvReac Type Severity Reaction Status Date / Time Latex, Natural Rubber AdvReac Mild Hives Unverified 01/26/25 13:25 Home Medication Medication Instructions Recorded vits no.126-ferrous fum tab PO 06/28/24 28 mg iron-folic acid 800 mcg tablet (Classic ) sertraline 25 mg tablet 75 mg (3 x 25 mg) PO DAILY #180 11/15/24 tabs ferrous sulfate 325 mg (65 mg 325 mg PO Q OTHER DAY 90 days #45 11/19/24 iron) tablet (FeroSul) tabs [id number]-uszlgrtoagfto-ayaskhgk 1 cap PO Q6H PRN pain #10 caps 11/21/24 50 mg-300 mg-40 mg capsule (Fioricet) omeprazole 20 mg capsule,delayed 20 mg PO BID #60 caps 12/02/24 release hydroxyzine HCl 25 mg tablet 25 mg PO TID PRN itching 90 days 01/12/25 #30 tabs Current Visit Medications: Current Medications Generic Name Dose Route Start Last Admin Trade Name Freq PRN Reason Stop Dose Admin Ringer's Solution 1,000 mls @ 125 mls/hr 01/28/25 20:00 IV INFUSION ROSSANA Oxytocin/Sodium Chloride 30 unit in 500 mls @ 1 mls/hr 01/28/25 20:00 Pitocin/Normal Saline IV INFUSION [facility] Protocol 1 MILLIUNITS/MIN IV Miscellaneous Supplies 1 each 01/28/25 18:00 Iv Access IV DIRECTED [facility] IV Miscellaneous Supplies 1 each 01/28/25 20:00 Iv Access IV DIRECTED ROSSANA Sodium Chloride 0 ml 01/28/25 17:49 Normal Saline Flush 10 Ml Syr IVP PRN PRN Sodium Chloride 0 ml 01/28/25 20:00 Normal Saline Flush 10 Ml Syr IVP BID ROSSANA Sodium Chloride 0 ml 01/28/25 17:49 Normal Saline 10 Ml Vial IJ DIRECTED PRN Sodium Chloride 0 ml 01/28/25 19:54 Normal Saline Flush 10 Ml Syr IVP PRN PRN Sodium Chloride 0 ml 01/28/25 20:00 Normal Saline Flush 10 Ml Syr IVP BID ROSSANA Sodium Chloride 0 ml 01/28/25 19:54 Normal Saline 10 Ml Vial IJ DIRECTED PRN PFSH Active Problems Active Problems: Problem Status Onset Code Adjustment disorder with anxiety Acute F43.22 Family history of thyroid disease in mother Acute Z83.49 History of depression Acute Z86.59 Acute Z34.90 Rubella non-immune status, antepartum Acute O09.899, Z28.39 Back pain affecting Acute O99.891, M54.9 Incontinence of urine in female Acute R32 Medical History Medical History (Updated 01/28/25 @ 20:02 by Portia Giraldo DO) Pelvic pain Urinary frequency Cystic fibrosis carrier Vaginal discharge Atypical squamous cells of undetermined significance (ASC-US) on cervical Pap smear Repeat pap Dec 23: NIL noted 02/17 --> repeat testing 02/18 wnl. Susceptible varicella Diarrhea Surgical History Surgical History H/O wisdom tooth extraction Tobacco Smoking/Tobacco Use Status: Former Tobacco Use Alcohol Alcohol Intake: never Substance Use Substance use: Never Substance use type: does not use Prental History History 2 Para 1 Hx # Term Pregnancies 1 Multiple births 0 Hx # Pregnancies 0 Ectopic pregnancies 0 AB induced 0 Hx Number of Living Children 1 AB spontaneous 0 Past Pregnancies Del. Date GA/Weeks # Preg Succ Route Wgt Sex Labor Lgth Anesthesia Location [facility] 12/15/20 39 No vaginal 3190.002 g Male WILMAR Garibay Vital Signs and Lab Results Vital Signs Most Recent Vital Signs in EMR: Most Recent Vital Signs Pulse BP 74 125/84 01/28/25 18:48 01/28/25 18:48 Lab Results 01/28/25 18:15 Blood Type / Crossmatch: Antibody Screen NEGATIVE 01/28/25 Complete Blood Count: WBC, (4.4-10.8) 12.61 10^3/uL H 01/28/25, 18:15 RBC, (3.93-5.22) 4.14 10^6/uL 01/28/25, 18:15 Hgb, (11.2-15.7) 10.8 g/dL L 01/28/25, 18:15 Hct, (36.0-46.0) 34.2 % L 11/01/25, 18:15 Plt Count, (130-400) 304 10^3/uL 01/28/25, 18:15 Toxicology Panel: Ur Amphetamines Screen, (Negative) Negative 01/28/25, 21:30 U Benzodiazepines Scrn, (Negative) Negative 01/28/25, 21:30 Ur Barbiturates Screen, (Negative) Negative 01/28/25, 21:30 Urine Cocaine Screen, (Negative) Negative 01/28/25, 21:30 Urine Methadone Screen, (Negative) Negative 01/28/25, 21:30 Urine Opiates Screen, (Negative) Negative 01/28/25, 21:30 Ur Tricyclics Screen, (Negative) Negative 01/28/25, 21:30 Ur THC Screen, (Negative) Negative 01/28/25, 21:30 Anesthesia Assessment and Plan Anesthesia History Personal History: No History of Anesthesia Complications Family History: No Family History of Anesthesia Complications Exercise Tolerance Exercise Tolerance: Metabolic Equivalents>4 Cardiac & Pulmonary Exam Cardiac Exam: Normal S1/S2 Heart Sounds Pulmonary Exam: Clear Bilateral Breath Sounds Implantable Cardiac Device Does patient have a Pacemaker or an ICD?: No Airway Exam Known Difficult Airway: No Mallampati Class: 1 Mouth Opening: Normal (> 3cm) Thyromental Distance: Greater than 3 cm Neck Range of Motion: Full ROM Neck Circumference: Normal Teeth Condition: Normal Dentition ASA Classification ASA Score: ASA 2 Emergency Case?: No NPO Status NPO Status: Full Stomach Status Status: Confirmed Anesthesia Plan Resuscitation Status: Full Code Anesthesia Technique: Epidural Anesthesia Airway Planned: Natural Airway Pain Management: Epidural Monitors Used: Standard Monitors Preoperative Comments:: 29 yo at 37 wks with SROM requesting labor analgesia. Sig PMHx: reflux (omeprazole), anxiety (sertraline). Former smoker. Plt 304 Previous Anes: - Epidural, HARMONY at 9 cm, threaded to 16 cm, no issues. States that it was very uncomfortable during the procedure, but it was quick and effective.
[2025-01-28 22:11] LABS: Cannabinoids THC Negative (Negative)
[2025-01-28 22:13] VITALS: BP 117/75; PULSE 93
[2025-01-28] MEDS: Lactated Ringers 1,000 ML 125 ML IV (23:23)
[2025-01-28] MEDS: Oxytocin/Normal Saline 30 UNIT/500 ML BAG 1 UNITS IV (23:24)
[2025-01-29] VITALS (103 sets, daily range): BP systolic 93–144; BP diastolic 50–87; PULSE 49–167; RESP 18; TEMP 36.5–36.9; O2SAT 80–100; BMI 34.5
--- NOTE | 2025-01-29 00:44 | W.PM.OBNL1 ---
Date of service: 01/29/25 Time of Service: 00:44 Informed Consent Informed Consent: Augmentation of Labor and Regional Anesthesia Pelvic Exam Dilation: 4 Effacement (%): 70 station: -1 Position: OA Cervix Position: anterior Contractions Monitor Mode: External Contraction Frequency(min): 3 Contraction Duration(sec): 60 Intensity: Strong Fetus A Monitor: External (US) Heart Rate Baseline: 13 Variability: Moderate (6-25 BPM) Categories: Category I Assessment and Plan Assessment and plan (1) : Status: Acute (2) Normal labor: Status: Acute Assessment and plan: Epidural for pain relief. Continue Pitocin. Anticipate vaginal delivery Objective Abnormal lab results 01/28/25 Range/Units 18:15 WBC 12.61 H (4.4-10.8) 10^3/uL Hgb 10.8 L (11.2-15.7) g/dL Hct 34.2 L (36.0-46.0) % MCH 26.1 L (27.0-33.0) pg MCHC 31.6 L (32.0-36.0) % Absolute Neutrophils 10.42 H (1.2-6.7) 10^3/uL Pulse BP 78 116/77 01/29/25 00:13 01/29/25 00:13 Laboratory Results WBC 12.61 10^3/uL (4.4-10.8) H 01/28/25 18:15 RBC 4.14 10^6/uL (3.93-5.22) 01/28/25 18:15 Hgb 10.8 g/dL (11.2-15.7) L 01/28/25 18:15 Hct 34.2 % (36.0-46.0) L 01/28/25 18:15 MCV 83 fL (80-95) 01/28/25 18:15 MCH 26.1 pg (27.0-33.0) L 01/28/25 18:15 MCHC 31.6 % (32.0-36.0) L 01/28/25 18:15 RDW 13.4 % (11.7-14.6) 01/28/25 18:15 Plt Count 304 10^3/uL (130-400) 01/28/25 18:15 MPV 10.0 fL (8.0-11.0) 01/28/25 18:15 Immature Gran % 0.6 % 01/28/25 18:15 Neutrophils % 82.6 % 01/28/25 18:15 Lymphocytes % 11.6 % 01/28/25 18:15 Monocytes % 4.8 % 01/28/25 18:15 Eosinophils % 0.2 % 01/28/25 18:15 Basophils % 0.2 % 01/28/25 18:15 Nucleated RBC % 0.0 % (0.0-0.3) 01/28/25 18:15 Absolute Neutrophils 10.42 10^3/uL (1.2-6.7) H 01/28/25 18:15 Absolute Lymphocytes 1.46 10^3/uL (1.2-3.4) 01/28/25 18:15 Absolute Monocytes 0.61 10^3/uL (0.1-0.8) 01/28/25 18:15 Absolute Eosinophils 0.03 10^3/uL (0.0-0.7) 01/28/25 18:15 Absolute Basophils 0.03 10^3/uL (0.0-0.2) 01/28/25 18:15 Urine Opiates Screen Negative (Negative) 01/28/25 21:30 Urine Methadone Screen Negative (Negative) 01/28/25 21:30 Ur Barbiturates Screen Negative (Negative) 01/28/25 21:30 Ur Tricyclics Screen Negative (Negative) 01/28/25 21:30 Ur Amphetamines Screen Negative (Negative) 01/28/25 21:30 U Benzodiazepines Scrn Negative (Negative) 01/28/25 21:30 Urine Cocaine Screen Negative (Negative) 01/28/25 21:30 Ur THC Screen Negative (Negative) 01/28/25 21:30 ABO/Rh O Positive 01/28/25 18:15 Antibody Screen NEGATIVE 01/28/25 18:15 Objective Narrative Objective Narrative: appropriate contraction pattern and cervical change Subjective Interval history since last seen: Increasing pain with contractions. Requested vallejo to be placed. Requesting epidural. UCs every 3 minutes. Pitocin at 1 mil/U Results Hemoglobin/Hematocrit: Hgb 10.8 g/dL (11.2-15.7) L 01/28/25 18:15 Hct 34.2 % (36.0-46.0) L 01/28/25 18:15 Abnormal Lab Findings: Abnormal Labs 01/28/25 18:15 WBC 12.61 H Hgb 10.8 L Hct 34.2 L MCH 26.1 L MCHC 31.6 L Absolute Neutrophils 10.42 H
[2025-01-29] MEDS: FentaNYL/ROPIvacaine 2 mcg/ml and 0.1% 200 ML CADD Cassette EP ×2 (00:45→01:00)
[2025-01-29] MEDS: ePHEDrine 50 MG/ML VIAL IVP (01:15)
--- NOTE | 2025-01-29 01:17 | W.PM.OBNL1 ---
Date of service: 01/29/25 Time of Service: 01:17 Informed Consent Informed Consent: Augmentation of Labor and Regional Anesthesia Assessment and Plan Assessment and plan (1) Normal labor: Status: Acute Assessment and plan: Good anelgesia. Category 1 strip. Anticipate vaginal delivery Objective Abnormal lab results 01/28/25 Range/Units 18:15 WBC 12.61 H (4.4-10.8) 10^3/uL Hgb 10.8 L (11.2-15.7) g/dL Hct 34.2 L (36.0-46.0) % MCH 26.1 L (27.0-33.0) pg MCHC 31.6 L (32.0-36.0) % Absolute Neutrophils 10.42 H (1.2-6.7) 10^3/uL Pulse BP Pulse Ox 111 H 120/59 L 99 01/29/25 01:56 EST 01/29/25 01:21 EST 01/29/25 01:56 EST Laboratory Results WBC 12.61 10^3/uL (4.4-10.8) H 01/28/25 18:15 RBC 4.14 10^6/uL (3.93-5.22) 01/28/25 18:15 Hgb 10.8 g/dL (11.2-15.7) L 01/28/25 18:15 Hct 34.2 % (36.0-46.0) L 01/28/25 18:15 MCV 83 fL (80-95) 01/28/25 18:15 MCH 26.1 pg (27.0-33.0) L 01/28/25 18:15 MCHC 31.6 % (32.0-36.0) L 01/28/25 18:15 RDW 13.4 % (11.7-14.6) 01/28/25 18:15 Plt Count 304 10^3/uL (130-400) 01/28/25 18:15 MPV 10.0 fL (8.0-11.0) 01/28/25 18:15 Immature Gran % 0.6 % 01/28/25 18:15 Neutrophils % 82.6 % 01/28/25 18:15 Lymphocytes % 11.6 % 01/28/25 18:15 Monocytes % 4.8 % 01/28/25 18:15 Eosinophils % 0.2 % 01/28/25 18:15 Basophils % 0.2 % 01/28/25 18:15 Nucleated RBC % 0.0 % (0.0-0.3) 01/28/25 18:15 Absolute Neutrophils 10.42 10^3/uL (1.2-6.7) H 01/28/25 18:15 Absolute Lymphocytes 1.46 10^3/uL (1.2-3.4) 01/28/25 18:15 Absolute Monocytes 0.61 10^3/uL (0.1-0.8) 01/28/25 18:15 Absolute Eosinophils 0.03 10^3/uL (0.0-0.7) 01/28/25 18:15 Absolute Basophils 0.03 10^3/uL (0.0-0.2) 01/28/25 18:15 Urine Opiates Screen Negative (Negative) 01/28/25 21:30 Urine Methadone Screen Negative (Negative) 01/28/25 21:30 Ur Barbiturates Screen Negative (Negative) 01/28/25 21:30 Ur Tricyclics Screen Negative (Negative) 01/28/25 21:30 Ur Amphetamines Screen Negative (Negative) 01/28/25 21:30 U Benzodiazepines Scrn Negative (Negative) 01/28/25 21:30 Urine Cocaine Screen Negative (Negative) 01/28/25 21:30 Ur THC Screen Negative (Negative) 01/28/25 21:30 ABO/Rh O Positive 01/28/25 18:15 Antibody Screen NEGATIVE 01/28/25 18:15 Subjective Interval history since last seen: Patient seen. Comfortable with epidural. Pitocin at 2 mil/u. Contractions q 3 minutes. Category 1 strip Results Hemoglobin/Hematocrit: Hgb 10.8 g/dL (11.2-15.7) L 01/28/25 18:15 Hct 34.2 % (36.0-46.0) L 01/28/25 18:15 Abnormal Lab Findings: Abnormal Labs 01/28/25 18:15 WBC 12.61 H Hgb 10.8 L Hct 34.2 L MCH 26.1 L MCHC 31.6 L Absolute Neutrophils 10.42 H
--- NOTE | 2025-01-29 01:32 | W.ANESNEU ---
Epidural/Spinal Catheter Date Performed: 01/29/25 Procedure Start: 00:50 Procedure Stop: 01:00 Requesting Provider: Portia Giraldo Procedure Location: Obstetrics Reason Performed: Labor Epidural Standard Monitors Applied: Blood Pressure and SpO2 Patient Position: Sitting Sedation Given (Indicate Dose Given): No Sedation given Patient Mental Status: Awake Sterility: Hand Hygiene, Surgical Cap, Surgical Mask, Sterile Gloves, Sterile Drape/Sheet and Chlorhexidine Procedure Location: L3-L4 Interspace Epidural Needle: Tuohy 17 Guage Needle Length: 3.5 Inch Needle Approach: Midline Epidural Procedure: 1% Lidocaine to skin and subcutaneous tissue with 25G needle and HARMONY to Saline Used Catheter Placed?: Catheter Placed (19 ga flex tip pro) Test Dose (Indicate Dose Given): 3ml 1.5% Lidocaine with 1:200K Epinephrine Given Loss of Resistance Depth (cm): 5 Catheter depth at skin (cm): 11 Dressing: Sorbaview Dressing Placed, Mastisol Used and Dressing reinforced with Tape Epidural Provider Bolus (Indicate Dose Given): Total Ropivacaine 0.1% with Fentanyl 2mcg/ml Given from pump. (ml) Dose:: 7 mL Additives (Indicate Dose Given ): None Infusion Medication: Medication Infusion Began Medication Infusion: Ropivacaine 0.1% with Fentanyl 2mcg/ml Maintenance Infusion Rate (ml/hour): 10 PCEA Bolus Dose (ml): 5 Block Level: N/A Paresthesia: None Ultrasound: Used to guanako site Number of Attempts (See previous attempts in note section): 1 Procedure Tolerated: No Complications Procedure Outcome: Successful Procedure Comment:: tollerated procedure fair, expressed decent discomfort during placement. Negative text dose, negative CSF aspiration, load performed off the pump with good effect. C/O nausea. MAP 67, felt like she was going to pass out. Additional IVF initiated via RN. this rapidly resolved with MAP returning to the 80's with just time. Educated on PCEA, and PRN orders. Performed By: Oz Irby
[2025-01-29] MEDS: Ondansetron 4 MG/2 ML VIAL IVP ×2 (01:38→06:54)
[2025-01-29] MEDS: Normal Saline Flush 10 ML SYR IVP ×2 (01:39→06:54)
[2025-01-29] MEDS: Lactated Ringers 500 ML IV (01:50)
--- NOTE | 2025-01-29 02:03 | W.OBCONSULT ---
Date of service: 01/29/25 Time of Service: 02:04 History of Present Illness History of Present Illness Chief Complaint: Category II tracing in Labor Narrative: Made aware of patient having variable decelerations. This started around the time of epidural placement with an episode of hypotension. She continued to have persistent variable decelerations that were in the early position. She has made cervical change and more recently is 8 cm. She was having recurrent deep variable decelerations with return to baseline. She had position change, IV fluids, scalp blade was placed by her attending physician. She is now knee-chest with a heart rate tracing that has a baseline of 120, moderate variability, resolution of the decelerations. In light of the condition of the baby and the variable decelerations, [employer] unified communications engineer was notified and present. OR crew notified to be present in case of need of operative delivery. The risk, benefits, and alternatives of surgical delivery were explained to the patient. She understands the risk of infection, bleeding, injury to surrounding organs. She also understands that if warranted, she may need general anesthesia. All of her questions were answered. At this point, with intrauterine resuscitation baby looks well. Will proceed with labor. Management per family practice. 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 Susceptible varicella Diarrhea Surgical History H/O wisdom tooth extraction Social History Smoking/Tobacco Use Status: Former Tobacco Use Tobacco: How many years used: 3 Quit status: has quit before Smoking risk assessment performed?: Yes Alcohol Intake: never Drug use: Never Substance use type: does not use Housing: house Do you feel safe at home: Yes Do you feel safe in your relationship?: Yes History History 2 Para 1 Hx # Term Pregnancies 1 Multiple births 0 Hx # Pregnancies 0 Ectopic pregnancies 0 AB induced 0 Hx Number of Living Children 1 AB spontaneous 0 Past Pregnancies Del. Date GA/Weeks # Preg Succ Route Wgt Sex Labor Lgth Anesthesia Location Prov Complic 12/15/20 39 No vaginal 7 lb 0.524 oz Male WILMAR Garibay Results Last Vital Signs Pulse 69 01/29/25 02:01 BP 112/66 01/29/25 01:33 EST Pulse Ox 98 01/29/25 02:01 Labs 01/28/25 18:15 Labs: Laboratory Results - last 24 hr 01/28/25 01/28/25 18:15 21:30 WBC 12.61 H RBC 4.14 Hgb 10.8 L Hct 34.2 L MCV 83 MCH 26.1 L MCHC 31.6 L RDW 13.4 Plt Count 304 MPV 10.0 Immature Gran % 0.6 Neutrophils % 82.6 Lymphocytes % 11.6 Monocytes % 4.8 Eosinophils % 0.2 Basophils % 0.2 Nucleated RBC % 0.0 Absolute Neutrophils 10.42 H Absolute Lymphocytes 1.46 Absolute Monocytes 0.61 Absolute Eosinophils 0.03 Absolute Basophils 0.03 Urine Opiates Screen Negative Urine Methadone Screen Negative Ur Barbiturates Screen Negative Ur Tricyclics Screen Negative Ur Amphetamines Screen Negative U Benzodiazepines Scrn Negative Urine Cocaine Screen Negative Ur THC Screen Negative ABO/Rh O Positive Antibody Screen NEGATIVE
[2025-01-29] MEDS: Lactated Ringers 1,000 ML 125 ML IV (06:18)
--- NOTE | 2025-01-29 06:52 | W.PM.OBNL1 ---
Date of service: 01/29/25 Time of Service: 06:52 Informed Consent Informed Consent: Augmentation of Labor and Regional Anesthesia Pelvic Exam Dilation: 5 Effacement (%): 70 station: -1 Cervix Position: anterior Consistency: soft Comments: Bulging bag of fluid, forebag ruptured, continued clear fluid Contractions Monitor Mode: External Contraction Frequency(min): 3 Contraction Duration(sec): 60 Intensity: Moderate/Strong Fetus A Heart Rate Baseline: 125 Presentation: Cephalic Variability: Moderate (6-25 BPM) Categories: Category I FHR Rhythm: Regular Accelerations: Present Assessment and Plan Assessment and plan (1) Normal labor: Status: Acute Assessment and plan: Patient is on Pitocin for augmentation, she has good pain relief with her epidural. She had artificial rupture of a forebag which should help to bring the vertex against the cervix for help with cervical dilation. Anticipate vaginal Objective Abnormal lab results 01/28/25 Range/Units 18:15 WBC 12.61 H (4.4-10.8) 10^3/uL Hgb 10.8 L (11.2-15.7) g/dL Hct 34.2 L (36.0-46.0) % MCH 26.1 L (27.0-33.0) pg MCHC 31.6 L (32.0-36.0) % Absolute Neutrophils 10.42 H (1.2-6.7) 10^3/uL Pulse BP Pulse Ox 73 119/59 L 98 01/29/25 06:49 01/29/25 06:33 01/29/25 06:49 Laboratory Results WBC 12.61 10^3/uL (4.4-10.8) H 01/28/25 18:15 RBC 4.14 10^6/uL (3.93-5.22) 01/28/25 18:15 Hgb 10.8 g/dL (11.2-15.7) L 01/28/25 18:15 Hct 34.2 % (36.0-46.0) L 01/28/25 18:15 MCV 83 fL (80-95) 01/28/25 18:15 MCH 26.1 pg (27.0-33.0) L 01/28/25 18:15 MCHC 31.6 % (32.0-36.0) L 01/28/25 18:15 RDW 13.4 % (11.7-14.6) 01/28/25 18:15 Plt Count 304 10^3/uL (130-400) 01/28/25 18:15 MPV 10.0 fL (8.0-11.0) 01/28/25 18:15 Immature Gran % 0.6 % 01/28/25 18:15 Neutrophils % 82.6 % 01/28/25 18:15 Lymphocytes % 11.6 % 01/28/25 18:15 Monocytes % 4.8 % 01/28/25 18:15 Eosinophils % 0.2 % 01/28/25 18:15 Basophils % 0.2 % 01/28/25 18:15 Nucleated RBC % 0.0 % (0.0-0.3) 01/28/25 18:15 Absolute Neutrophils 10.42 10^3/uL (1.2-6.7) H 01/28/25 18:15 Absolute Lymphocytes 1.46 10^3/uL (1.2-3.4) 01/28/25 18:15 Absolute Monocytes 0.61 10^3/uL (0.1-0.8) 01/28/25 18:15 Absolute Eosinophils 0.03 10^3/uL (0.0-0.7) 01/28/25 18:15 Absolute Basophils 0.03 10^3/uL (0.0-0.2) 01/28/25 18:15 Urine Opiates Screen Negative (Negative) 01/28/25 21:30 Urine Methadone Screen Negative (Negative) 01/28/25 21:30 Ur Barbiturates Screen Negative (Negative) 01/28/25 21:30 Ur Tricyclics Screen Negative (Negative) 01/28/25 21:30 Ur Amphetamines Screen Negative (Negative) 01/28/25 21:30 U Benzodiazepines Scrn Negative (Negative) 01/28/25 21:30 Urine Cocaine Screen Negative (Negative) 01/28/25 21:30 Ur THC Screen Negative (Negative) 01/28/25 21:30 ABO/Rh O Positive 01/28/25 18:15 Antibody Screen NEGATIVE 01/28/25 18:15 Subjective Interval history since last seen: Patient seen and examined this morning. Comfortable with epidural. Category 1 heart rate tracing with heart tones 125, moderate variability. Pitocin is at 4 milliunits. Contractions are 3 cm apart. She feels no discomfort. Vital signs have remained stable. Results Hemoglobin/Hematocrit: Hgb 10.8 g/dL (11.2-15.7) L 01/28/25 18:15 Hct 34.2 % (36.0-46.0) L 01/28/25 18:15 Abnormal Lab Findings: Abnormal Labs 01/28/25 18:15 WBC 12.61 H Hgb 10.8 L Hct 34.2 L MCH 26.1 L MCHC 31.6 L Absolute Neutrophils 10.42 H
[2025-01-29] MEDS: Omeprazole 20 MG CAPCR PO (08:03)
[2025-01-29] MEDS: Acetaminophen 500 MG TAB 1000 MG PO (08:03)
--- NOTE | 2025-01-29 08:55 | W.PM.OBNL1 ---
Date of service: 01/29/25 Time of Service: 08:55 Informed Consent Informed Consent: Augmentation of Labor and Regional Anesthesia Pelvic Exam Dilation: 8 Effacement (%): 100 station: 0 Contractions Contraction Frequency(min): 3 Contraction Duration(sec): 60 Intensity: Strong Fetus A Heart Rate Baseline: 110 Presentation: Cephalic Variability: Moderate (6-25 BPM) Categories: Category I Accelerations: Present Assessment and Plan Assessment and plan (1) Normal labor: Status: Acute Assessment and plan: Normal active labor. Appropriate progress. Continue Pitocin augmentation. Anticipate vaginal . Objective Abnormal lab results 01/28/25 Range/Units 18:15 WBC 12.61 H (4.4-10.8) 10^3/uL Hgb 10.8 L (11.2-15.7) g/dL Hct 34.2 L (36.0-46.0) % MCH 26.1 L (27.0-33.0) pg MCHC 31.6 L (32.0-36.0) % Absolute Neutrophils 10.42 H (1.2-6.7) 10^3/uL Temp Pulse Resp BP Pulse Ox 98.4 F 70 18 132/70 98 01/29/25 07:37 01/29/25 07:37 01/29/25 08:00 01/29/25 07:37 01/29/25 07:19 Laboratory Results WBC 12.61 10^3/uL (4.4-10.8) H 01/28/25 18:15 RBC 4.14 10^6/uL (3.93-5.22) 01/28/25 18:15 Hgb 10.8 g/dL (11.2-15.7) L 01/28/25 18:15 Hct 34.2 % (36.0-46.0) L 01/28/25 18:15 MCV 83 fL (80-95) 01/28/25 18:15 MCH 26.1 pg (27.0-33.0) L 01/28/25 18:15 MCHC 31.6 % (32.0-36.0) L 01/28/25 18:15 RDW 13.4 % (11.7-14.6) 01/28/25 18:15 Plt Count 304 10^3/uL (130-400) 01/28/25 18:15 MPV 10.0 fL (8.0-11.0) 01/28/25 18:15 Immature Gran % 0.6 % 01/28/25 18:15 Neutrophils % 82.6 % 01/28/25 18:15 Lymphocytes % 11.6 % 01/28/25 18:15 Monocytes % 4.8 % 01/28/25 18:15 Eosinophils % 0.2 % 01/28/25 18:15 Basophils % 0.2 % 01/28/25 18:15 Nucleated RBC % 0.0 % (0.0-0.3) 01/28/25 18:15 Absolute Neutrophils 10.42 10^3/uL (1.2-6.7) H 01/28/25 18:15 Absolute Lymphocytes 1.46 10^3/uL (1.2-3.4) 01/28/25 18:15 Absolute Monocytes 0.61 10^3/uL (0.1-0.8) 01/28/25 18:15 Absolute Eosinophils 0.03 10^3/uL (0.0-0.7) 01/28/25 18:15 Absolute Basophils 0.03 10^3/uL (0.0-0.2) 01/28/25 18:15 Urine Opiates Screen Negative (Negative) 01/28/25 21:30 Urine Methadone Screen Negative (Negative) 01/28/25 21:30 Ur Barbiturates Screen Negative (Negative) 01/28/25 21:30 Ur Tricyclics Screen Negative (Negative) 01/28/25 21:30 Ur Amphetamines Screen Negative (Negative) 01/28/25 21:30 U Benzodiazepines Scrn Negative (Negative) 01/28/25 21:30 Urine Cocaine Screen Negative (Negative) 01/28/25 21:30 Ur THC Screen Negative (Negative) 01/28/25 21:30 ABO/Rh O Positive 01/28/25 18:15 Antibody Screen NEGATIVE 01/28/25 18:15 Subjective Interval history since last seen: Patient seen and examined. Doing well. Comfortable with epidural. heart rate baseline in the 1 teens, category 1 strip. Pitocin is at 8 milliunits. Patient did spinning babies, is not repositioned left lateral with a peanut ball Results Hemoglobin/Hematocrit: Hgb 10.8 g/dL (11.2-15.7) L 01/28/25 18:15 Hct 34.2 % (36.0-46.0) L 01/28/25 18:15 Abnormal Lab Findings: Abnormal Labs 01/28/25 18:15 WBC 12.61 H Hgb 10.8 L Hct 34.2 L MCH 26.1 L MCHC 31.6 L Absolute Neutrophils 10.42 H
[2025-01-29] MEDS: Oxytocin/Normal Saline 30 UNIT/500 ML BAG 95 UNITS IV (09:42)
--- NOTE | 2025-01-29 10:09 | W.OBDELIVERY ---
Date of service: 01/29/25 Time of Service: 10:09 OB Labor/ Delivery Information Baby A Delivery Delivery Method: Spontaneaous Presentation: Cephalic Vertex Position: Right Occipital Anterior Cord Description-Baby A: 3 Vessels, Nuchal Cord and Reduced Cord Description Comment: Long Amniotic Fluid: Clear Quantitative Blood Loss: 250 Delivery Outcome: Liveborn Complications: none Transferred: Remains with Mother Note: Patient comfortable with epidural and having pelvic pressure. Cervical exam showed cervix completely dilated, vertex at +2 station with category 1 strip. Second stage huddle held. With good maternal effort, and approximately 3 pushes, mother pushed the vertex over an intact perineum. There was evidence of nuchal cord which was loose and reduced. Shoulders delivered without difficulty. Patient was placed skin to skin with mom. There was delayed cord clamping for a three-vessel cord that was noted to be long. Placenta delivered spontaneously and was noted to be intact. On inspection of the perineum, vagina, and cervix no lacerations are noted. Uterus is firm and 2 cm below the umbilicus. Patient received postdelivery IV Pitocin for uterine tonicity. Mom and baby are in stable condition postdelivery with strong bonding observed. Providers Doctor: Portia Giraldo Nurse: Najma Hernandez Nurse: Suha Shepherd Labor/Delivery Information Number of Babies in Womb: 1 Steroids Given: None Reason Steroids Not Administered: N/A Group Beta Strep: Negative Antibiotics Administered: No Shoulder Dystocia: No Stages of Labor Onset of Labor Date: 01/28/25 Complete Dilatation Date: 01/29/25 Complete Dilatation Time: 09:25 ROM Baby A: 01/29/25 ROM Baby A: 06:38 Delivery Date-Baby A: 01/29/25 Delivery Time-Baby A: 09:40 Labor Stage 2 Duration: 15 minutes Placenta Delivery Date-Baby A: 01/29/25 Placenta Delivery Time-Baby A: 09:49 Labor-Stage 3 Duration: 9 minutes Placenta Status: Delivered Baby A Infant Gender: Female Gestational Status: Early Term (37-38.6 wks) Gestational Age in Weeks/Days: 37 Weeks and 4 Days Length-Baby A: 20 in Score-1 Minute Interval(Baby A) Heart Rate-1 minute: 100 BPM or Greater Respiratory Effort- 1 minute: Spontaneous/Strong Cry Muscle Tone-1 minute: Active Movement Reflex Response-1 minute: Prompt Response Color-1 minute: Bluish Hands or Feet Total Score-1 minute: 9 Score-5 Minute Interval(Baby A) Heart Rate- 5 minute: 100 BPM or Greater Respiratory Effort-5 minute: Spontaneous/Strong Cry Muscle Tone-5 minute: Active Movement Reflex Response-5 minute: Prompt Response Color-5 minute: [place]/No Cyanosis Total Score- 5 minute: 10
[2025-01-29] MEDS: Dibucaine 1% 28 GM TUBE TP (10:38)
[2025-01-29] MEDS: Ibuprofen 600 MG TAB PO (10:38)
[2025-01-29] MEDS: Hamamelis Leaf/Glycerin 100 EACH BOX PR (10:39)
[2025-01-29] MEDS: Sertraline 25 MG TAB 75 MG PO (11:41)
--- NOTE | 2025-01-29 13:04 | W.ANESPOSTOP ---
Postoperative Evaluation Date, Time and Location Date Performed: 01/29/25 Time Performed: 13:04 Patient Location: Obstetrics Vital Signs Most Recent Imported Vital Signs: Most Recent Vital Signs Temp Pulse Resp BP Pulse Ox 36.5 C 66 18 122/72 98 01/29/25 12:30 01/29/25 12:30 01/29/25 12:30 01/29/25 12:30 01/29/25 12:30 Pain Score Most Recent Pain Score: Most Recent Pain Score Pain Level 0 01/29/25 03:00 Assessment Mental Status: Awake (Alert & Oriented to Patient Baseline) Airway and Respiratory Function: Patent airway with normal (patient baseline) respiratory exam Cardiovascular Function: Hemodynamically Stable Hydration Status: Adequately Hydrated Nausea & Vomiting: No Nausea or Vomiting Pain: Pain is tolerable per patient Peripheral Nerve Block: Patient did not receive a nerve block
[2025-01-30 07:56] VITALS: TEMP 36.7
[2025-01-30] MEDS: Acetaminophen 325 MG TAB 650 MG PO ×3 (07:56→20:23)
[2025-01-30] MEDS: Ibuprofen 600 MG TAB PO ×3 (07:56→20:22)
[2025-01-30] MEDS: Sertraline 25 MG TAB 75 MG PO (07:57)
[2025-01-30] MEDS: Measles, Mumps, & Rubella Vaccine 0.5 ML VIAL SC (08:04)
[2025-01-30 08:11] LABS: Abs Immature Grans 0.11 10^3/uL (0.0-0.06); HCT 31.2 % (36.0-46.0); HGB 10.2 g/dL (11.2-15.7); Immature Grans % 0.8 %; MCH 26.7 pg (27.0-33.0); MCHC 32.7 % (32.0-36.0); MCV 82 fL (80-95); MPV 10.1 fL (8.0-11.0); Platelet Count 270 10^3/uL (130-400); RBC 3.82 10^6/uL (3.93-5.22); RDW 13.3 % (11.7-14.6); RDW-SD 39.4 fL; WBC 12.98 10^3/uL (4.4-10.8)
[2025-01-30 08:57] VITALS: BP 117/78; PULSE 79; RESP 16; TEMP 36.4; O2SAT 99
[2025-01-30] MEDS: Docusate Sodium 100 MG CAP PO ×2 (09:59→20:21)
[2025-01-30 11:43] LABS: Fentanyl Scr w/Rfx Confirm Negative ng/mL (<1)
[2025-01-30] MEDS: Omeprazole 20 MG CAPCR PO ×2 (20:23)
[2025-01-30 22:08] VITALS: BP 125/69; PULSE 70; RESP 18; TEMP 37.2
[2025-01-31] MEDS: Omeprazole 20 MG CAPCR PO (08:22)
[2025-01-31] MEDS: Sertraline 25 MG TAB 75 MG PO (08:22)
[2025-01-31] MEDS: Ibuprofen 600 MG TAB PO ×2 (08:24→18:16)
[2025-01-31 08:56] VITALS: BP 116/85; PULSE 83; RESP 18; TEMP 36.5; O2SAT 100
--- NOTE | 2025-01-31 09:19 | W.PM.OBPNV1 ---
Date of service: 01/31/25 Time of Service: 09:19 Assessment and Plan Assessment and plan (1) (normal spontaneous vaginal delivery): Status: Acute Assessment and plan: 2 days status postnormal spontaneous vaginal . Doing well. Discharge home today, both breast and bottlefeeding. Undecided on contraceptive management at this point. Will follow-up in 2 and 6 weeks. All questions were answered. Subjective Subjective Interval history: Patient seen and examined. Doing well this morning. No signs or symptoms of infection or fever. Baby is completing his course of antibiotics for possible sepsis. She has been both breast and bottlefeeding. She is feeling well and overall doing well. Exam Physical Exam Vital signs: Temp Pulse Resp BP Pulse Ox 97.7 F 83 18 116/85 100 01/31/25 08:56 01/31/25 08:56 01/31/25 08:56 01/31/25 08:56 01/31/25 08:56 Vital Signs Reviewed: Yes Constitutional Constitutional: no acute distress HEENT Exam HEENT Exam: Normal Neck Exam Neck Exam: Normal Respiratory Exam Respiratory Exam: Normal Cardiovascular Exam Cardiovascular Exam: Normal Fundal Exam Fundus: Below Umbilicus and Firm Extremities Exam Extremity Exam: Normal and Edema (1+ bilateral); negative Calf Tenderness Skin Exam Skin Exam: Normal Neurological Exam Neurological Exam: Normal Results Hemoglobin/Hematocrit: Hgb 10.2 g/dL (11.2-15.7) L 01/30/25 08:00 Hct 31.2 % (36.0-46.0) L 01/30/25 08:00 Abnormal Lab Findings: Abnormal Labs 01/28/25 01/30/25 18:15 08:00 WBC 12.61 H 12.98 H RBC 3.82 L Hgb 10.8 L 10.2 L Hct 34.2 L 31.2 L MCH 26.1 L 26.7 L MCHC 31.6 L Absolute Neutrophils 10.42 H 10.40 H
--- NOTE | 2025-01-31 09:24 | DSE_ITS ---
Date of service: 01/31/25 Time of Service: 09:24 DS: Diagnosis Discharge Diagnosis (1) (normal spontaneous vaginal delivery): Status: Acute Asessment and Plan: day #2 status post vaginal after augmentation. Prolonged rupture at 16 hours. Viable female infant. Overall doing well. Follow-up in the office in 2 and 6 weeks. Prescription for ibuprofen sent to the pharmacy. Discharge Plan Disposition Patient Disposition: Home Condition: Good Discharge Details Reason For Visit: Term ROM Admit Date/Time: 01/28/25 17:49 Admit Provider: Portia Giraldo Attending Provider: Portia Giraldo Primary Care Provider: Iris Salcedo Hospital Course Hospital Course: Patient presented to the center with irregular contractions and pelvic discomfort. She subsequently had spontaneous rupture of membranes. She received Pitocin augmentation of her labor, and an epidural for pain control. She did have rupture of membranes for approximately 16 hours. She had a forebag that was reduced shortly prior to delivery. Overall, throughout the course of her labor, she had stable vital signs and a category 1 heart rate tracing. She had a normal spontaneous vaginal of a viable female infant named Eladio. She will be discharged home day #2 ambulating, tolerating regular diet and oral pain medication with stable vital signs. As of note, baby did have low temperatures, and was treated for possibility of sepsis on antibiotics. She is also discharged to home 2 days after . Home Meds and New Rx's Prescriptions: New ibuprofen 600 mg tablet 600 mg PO TID PRNQty: 60 1RF No Action Classic 28 mg iron- 800 mcg tablet PO omeprazole 20 mg capsule,delayed release(DR/EC) 20 mg PO BID Qty: 60 0RF gfopiputck-dsswpodqdmkfr-moic [Fioricet] 50-300-40 mg capsule 1 cap PO Q6H PRN (Reason: pain) Qty: 10 0RF hydroxyzine HCl 25 mg tablet 25 mg PO TID PRN (Reason: itching) 90 Days Qty: 30 1RF sertraline 25 mg tablet 75 mg PO DAILY Qty: 180 3RF ferrous sulfate [FeroSul] 325 mg (65 mg iron) tablet 325 mg PO Q OTHER DAY 90 Days Qty: 45 1RF Discharge Instructions Stand Alone Forms: Portal Information Activity:: Pelvic rest Equipment/Supplies:: No Equipment Needed Diet:: As Tolerated Discharge Orders Discharge Orders: Discharge Order (Routine); Ordered 01/31/25 Ordered By: Portia Giraldo OB:DS Summary Summary Vaginal Delivery Method: Spontaneaous Episiotomy Description: None Laceration Description: None Laceration Extension: N/A Contraception Discussed Contraception Discussed: Yes Contraceptive Plan: Undecided, [place] Infant Gender-Baby A: Female weight: 6 lb 9.116 oz Status at Discharge Functional status at discharge: independent ambulation Overall status at discharge: patient is progressing back to baseline Mental Status: mental status grossly normal Speech and Movement: speech and movement normal Mood: congruent mood Affect: normal affect Exam Physical Exam Vital signs: Temp Pulse Resp BP Pulse Ox 97.7 F 83 18 116/85 100 01/31/25 08:56 01/31/25 08:56 01/31/25 08:56 01/31/25 08:56 01/31/25 08:56 Constitutional Comments: See physical exam from progress note dated 01/31/2025. PFSH All Active Problems (Updated 01/31/25 @ 09:20 by Portia Giraldo DO) (normal spontaneous vaginal delivery) (Acute) 01/29/2025-vaginal , induced labor, rupture of membranes approximately 16 hours. 37 weeks 3 days. 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 Susceptible varicella Diarrhea Surgical History H/O wisdom tooth extraction Social History Smoking/Tobacco Use Status: Former Tobacco Use Tobacco: How many years used: 3 Quit status: has quit before Smoking risk assessment performed?: Yes Alcohol Intake: never Drug use: Never Substance use type: does not use Housing: house Do you feel safe at home: Yes Do you feel safe in your relationship?: Yes History History 2 Para 1 Hx # Term Pregnancies 1 Multiple births 0 Hx # Pregnancies 0 Ectopic pregnancies 0 AB induced 0 Hx Number of Living Children 1 AB spontaneous 0 Past Pregnancies Del. Date GA/Weeks # Preg Succ Route Wgt Sex Labor Lgth Anesth esia Location [facility] 12/15/20 39 No vaginal 7 lb 0.524 oz Male Meagan Garcia CNM DS: Data Vitals/I&O Vitals and I&O: Vital Signs Temperature 97.7 F 01/31/25 08:56 Temperature 98.4 F 01/28/25 15:58 Temperature Source Oral 01/31/25 08:56 Pulse 83 01/31/25 08:56 Pulse 66 01/28/25 15:58 Pulse Rhythm Regular 01/31/25 08:56 Respiratory Rate 18 01/31/25 08:56 Blood Pressure 116/85 01/31/25 08:56 Blood Pressure 121/58 01/28/25 15:58 Blood Pressure Mean 95 01/31/25 08:56 Pulse Oximetry 100 01/31/25 08:56 Pain Level 3 01/30/25 20:22 Comment patient here for NST to rule out labor, patient feels the baby is very low and patient is experiencing a lot of pressure. Patient states she lost her mucus plug yesterday, but does not believe her water broke. No bleeding, no abdominal trauma and no sexual intercourse within the last 24 hours. 01/28/25 17:33 Intake & Output 01/30/25 01/30/25 01/31/25 11:59 23:59 11:59 Other: Urine Color Pale Data Completed and Pending Pending Labs at Discharge: 01/28/25 01/28/25 01/30/25 18:15 21:30 08:00 WBC 12.61 H 12.98 H RBC 4.14 3.82 L Hgb 10.8 L 10.2 L Hct 34.2 L 31.2 L MCV 83 82 MCH 26.1 L 26.7 L MCHC 31.6 L 32.7 RDW 13.4 13.3 Plt Count 304 270 MPV 10.0 10.1 Immature Gran % 0.6 0.8 Neutrophils % 82.6 80.1 Lymphocytes % 11.6 13.3 Monocytes % 4.8 4.8 Eosinophils % 0.2 0.8 Basophils % 0.2 0.2 Nucleated RBC % 0.0 0.0 Absolute Neutrophils 10.42 H 10.40 H Absolute Lymphocytes 1.46 1.73 Absolute Monocytes 0.61 0.62 Absolute Eosinophils 0.03 0.10 Absolute Basophils 0.03 0.03 Urine Opiates Screen Negative Urine Methadone Screen Negative Urine Fentanyl Screen Negative Ur Barbiturates Screen Negative Ur Tricyclics Screen Negative Ur Amphetamines Screen Negative U Benzodiazepines Scrn Negative Urine Cocaine Screen Negative Ur THC Screen Negative ABO/Rh O Positive Antibody Screen NEGATIVE
[2025-01-31] MEDS: Acetaminophen 325 MG TAB 650 MG PO (18:16)
== END 2025-01-31 18:20 | disposition home or self-care (01) | DRG 807 ==
LOC: BCD 17:54 → OBS 17:54
PROVIDERS: Admitting Provider Obstetrics & Gynecology; PCP Nurse Practitioner Family; Visit Provider Obstetrics & Gynecology
DX: O42.013 Preterm premature rupture of membranes, onset of labor within 24 hours of rupture, third trimester (principal); Z37.0 Single live birth; O69.81X0 Labor and delivery complicated by cord around neck, without compression, not applicable or unspecified; Z3A.37 37 weeks gestation of pregnancy; O99.344 Other mental disorders complicating childbirth; F32.A Depression, unspecified; Z28.39 Other underimmunization status; Z14.1 Cystic fibrosis carrier; F43.22 Adjustment disorder with anxiety; R32 Unspecified urinary incontinence; O75.89 Other specified complications of labor and delivery; R19.7 Diarrhea, unspecified; M54.9 Dorsalgia, unspecified
CPT/HCPCS: 36415; 80307; 86850; 86900; 86901; 90707; 59025; 85025; J2405

== ENCOUNTER 2025-02-13 15:37 | Outpatient (REF) | payer BC, SELFPAY | END 2025-02-13 15:38 | disposition home or self-care (01) | LOC: LBN 15:37 | PROVIDERS: PCP Nurse Practitioner Family; Visit Provider Obstetrics & Gynecology | DX: R30.0 Dysuria (principal) | CPT/HCPCS: 87086 ==